=== PATIENT | female | born 1980 | race Caucasian/White ===

== ENCOUNTER 2022-05-10 08:04 | Outpatient (REF) | payer BC, SELFPAY ==
[2022-05-10 11:55] LABS: Alanine Aminotransferase 12 U/L (0-31); Albumin Level 3.8 g/dL (3.5-5.0); Alkaline Phosphatase 48 U/L (39-117); Anion Gap 16 (12-20); Aspartate Amino Transferase 13 U/L (5-31); Bilirubin Total 0.3 mg/dL (0.0-1.0); Blood Urea Nitrogen 18 mg/dL (9-16); Calcium 8.9 mg/dL (8.4-10.2); Carbon Dioxide 22 mmol/L (22-29); Chloride 107 mmol/L (96-108); Cholesterol 181 mg/dL; Estimated Glomerular Filt Rate 54; Glucose Fasting 111 mg/dL (60-99); HDL Cholesterol 55 mg/dL; LDL Cholesterol Calculated 99 mg/dl; Potassium 4.5 mmol/L (3.3-5.1); Sodium 140 mmol/L (135-145); Total Protein 7.1 g/dL (6.5-8.0); Triglycerides 137 mg/dL
[2022-05-10 11:57] LABS: Troponin-I High Sensitivity < 3.5 ng/L (<3.5-17.0)
[2022-05-10 12:02] LABS: TSH reflex Free T4 1.49 uIU/mL (0.32-4.0)
== END 2022-05-10 08:05 | disposition home or self-care (01) ==
LOC: HO.WFDLDS 08:04
PROVIDERS: Visit Provider Family Medicine
DX: Z00.00 Encounter for general adult medical examination without abnormal findings (principal); R07.89 Other chest pain; Z13.220 Encounter for screening for lipoid disorders; Z13.29 Encounter for screening for other suspected endocrine disorder
CPT/HCPCS: 36415; 80053; 80061; 84443; 84484

== ENCOUNTER 2022-07-01 08:04 | Outpatient (REF) | payer BC, SELFPAY ==
[2022-07-01 11:40] LABS: Appearance Urine Clear; Color Urine Yellow; Glucose Urine UA Negative (Negative); Leukocyte Esterase Urine Small (1+) (Negative); Nitrite Urine Negative (Negative); PH 5.5 (5.0-9.0); Specific Gravity - Urine 1.015 (1.005-1.025); UMIC TRIGGER UA YES; Urine Blood Negative (Negative); Urine Ketones Negative (Negative); Urine Protein Negative (Neg-Trace)
[2022-07-01 11:47] LABS: Bacteria Urine Trace (None Seen); Hyaline Casts Urine 0-2 /LPF (0-2); RBC Urine 0-2 /HPF (0-2)
== END 2022-07-01 08:05 | disposition home or self-care (01) ==
LOC: HO.WFDLDS 08:04
PROVIDERS: Visit Provider Family Medicine
DX: Z00.00 Encounter for general adult medical examination without abnormal findings (principal)
CPT/HCPCS: 81001

== ENCOUNTER 2023-04-28 11:56 | Outpatient (AMB) | payer BC, SELFPAY ==
--- NOTE | 2023-04-28 12:11 | MHC.OFFVIS ---
Intake Vital Signs 04/28/23 12:12 Height 5 ft 6 in Weight 260 lb BMI 42.0 BP 121/56 L Blood Pressure Location Lt brachial Position Sitting Pulse 78 Intake Visit Reasons: pt requested appointment Intake Note: Patient follow up pre colonoscopy screening. Patient denies any GI issues. Winder Hand Required: No Accompanied by: Self / Same As Patient Allergies No Known Allergies Allergy (Verified 04/28/23 12:10) HPI HPI Comments History of Present Illness Details A 43 y/o female seen in 09/03- here prepped for colonoscopy-miscommunication when she call to schedule her appointment- [facility], [facility] Family History Mother Colon polyps Maternal Uncle Colon polyps Maternal Grandfather Colon polyps Social History Housing: House Patient Tobacco Use Status: Never used Tobacco e-Cigarette/Vaping Use: Never Used Second Hand Smoke Exposure: No service: No Current occupational status: employed Current occupation: Mental Health Current occupational exposures/hazards: No Cognitive needs: No Hearing needs: No Vision needs: Yes Physical Exam Vital Signs: Last Vital Signs Pulse 78 04/28/23 12:12 BP 121/56 L 04/28/23 12:12 BMI result Body Mass Index 42.0 Assessment & Plan Assessment & Plan (1) Encounter for colonoscopy in patient with family history of colon polyps: Comment: Patient arrived to prep for colonoscopy there was some confusion when she called to schedule A point. Unable to have patient accommodated today, there was no availability however we did attempt. Sincere apologies, she seemed receptive Family history colon polyps mother at age 50-recommend first-degree relatives begin screening at age 40 reschedule Colonoscopy MiraLax Gatorade split prep Code(s): Z12.11 - Encounter for screening for malignant neoplasm of colon; Z83.71 - Family history of colonic polyps Medications: New bisacodyl (Dulcolax (bisacodyl)) Take 4 tablets by mouth at 12:00pm the day before your procedure. 20 mg (4 x 5 mg) PO ONCE 4 tabs 0RF colonoscopy prep 1 day Z12.11 - Encounter for screening for malignant neoplasm of colon polyethylene glycol 3350 (Miralax) Take as directed by mouth the day before your procedure. 238 grams PO ONCE 238 grams 0RF 1 day Patient Instructions: Patient to be rescheduled for colonoscopy MiraLax Gatorade split prep sent to pharmacy Again apologize to patient due to miscommunication with appointment timing Encouraged to call with questions or concerns Appreciate the opportunity assist in the care the patient Coding Level of Care Code Est Pt Level 2 (05503) Diagnoses Encounter for colonoscopy in patient with family history of colon polyps Z12.11; Z83.71 Comment Patient scheduled incorrectly-
[2023-04-28 12:12] VITALS: BP 121/56; PULSE 78; BMI 42.0
== END 2023-04-28 13:04 | disposition home or self-care (01) ==
PROVIDERS: PCP Family Medicine; Visit Provider Physician Assistant
DX: Z01.818 Encounter for other preprocedural examination (principal); Z12.11 Encounter for screening for malignant neoplasm of colon; Z83.71 Family history of colonic polyps
CPT/HCPCS: S0285

== ENCOUNTER → 2023-04-28 11:56 | Outpatient (BNVA) | payer BC, SELFPAY | PROVIDERS: PCP Family Medicine; Visit Provider Physician Assistant ==

== ENCOUNTER 2023-09-23 10:48 | Day surgery (SDC) | payer BC, SELFPAY ==
--- NOTE | 2023-09-22 10:11 | HO.ANESPROP2 ---
Documented by User: Karen Guajardo NP 09/22/23 10:12 HPI - Anesthesia Eval Consult details Narrative: 43yo F for Colonoscopy PMFSH Active Problems Active Problems: All Active Problems (Updated 04/28/23 @ 13:10 by Sandy Browne PA-C) Encounter for colonoscopy in patient with family history of colon polyps (Acute) Screening for colon cancer (Acute) Morbid obesity with BMI of 40.0-44.9, adult (Acute) Sinusitis (Acute) Elevated fasting glucose (Acute) Breast cancer screening by mammogram (Acute) Screening for cervical cancer (Acute) Adult general medical exam (Acute) Chest tightness (Acute) Right ankle pain (Acute) Pain in left bacon (Acute) Laboratory exam ordered as part of routine general medical examination (Acute) Past Medical History Medical History Hx of basal cell carcinoma Family History Family History Mother Colon polyps Maternal Uncle Colon polyps Maternal Grandfather Colon polyps Surgical History Surgical History Hx of wisdom tooth extraction Hx of basal cell carcinoma excision Social History Social History Housing: House Patient Tobacco Use Status: Never used Tobacco e-Cigarette/Vaping Use: Never Used Second Hand Smoke Exposure: No Use of substances other than those prescribed or required for medical reasons: No Are you DNR?: No Advance Directives: No Advance Directives Information Provided: Yes service: No Current occupational status: employed Current occupation: Mental Health Current occupational exposures/hazards: No Cognitive needs: No Hearing needs: No Vision needs: Yes Meds Allergies Allergy/AdvReac Type Severity Reaction Status Date / Time No Known Allergies Allergy Verified 09/23/23 11:09 Home Medications Medication Instructions Recorded Confirmed Last Taken Type norgestimate 0.25 mg-ethinyl 1 tab PO DAILY 04/29/22 09/23/23 Unknown History estradiol 35 mcg tablet (Sprintec (28)) Assessment and Plan Assessment Anesthesia Assessment: Chart Reviewed Documented by User: Evangelina Sparks MD 09/23/23 11:21 HPI - Anesthesia Eval Consult details Narrative: 43yo F for Colonoscopy, morbid obesity PMFSH Past Medical History Medical History Hx of basal cell carcinoma Family History Family History Mother Colon polyps Maternal Uncle Colon polyps Maternal Grandfather Colon polyps Family history of problems with anesthesia: No Surgical History Surgical History Hx of wisdom tooth extraction Hx of basal cell carcinoma excision History of Problems with Anesthesia: No Social History Social History Housing: House Patient Tobacco Use Status: Never used Tobacco e-Cigarette/Vaping Use: Never Used Second Hand Smoke Exposure: No Use of substances other than those prescribed or required for medical reasons: No Are you DNR?: No Advance Directives: No Advance Directives Information Provided: Yes service: No Current occupational status: employed Current occupation: Mental Health Current occupational exposures/hazards: No Cognitive needs: No Hearing needs: No Vision needs: Yes Meds Allergies Allergy/AdvReac Type Severity Reaction Status Date / Time No Known Allergies Allergy Verified 09/23/23 11:09 Home Medications Medication Instructions Recorded Confirmed Last Taken Type norgestimate 0.25 mg-ethinyl 1 tab PO DAILY 04/29/22 09/23/23 Unknown History estradiol 35 mcg tablet (Sprintec (28)) Exam Airway Mallampati Class: II TM Dist: >3cm Neck ROM: Full Heart: rrr Lungs: cta Assessment and Plan Assessment Anesthesia Assessment: Anesthesia Plan Discussed and Chart Reviewed Final Anesthetic Review Family History of Problems with Anesthesia: No History of Problems with Anesthesia: No NPO: Yes ASA Class: III (morbid obesity) Final Preanesthetic Review: No Changes in Pt Med Stat, Meds/Allgs Chart Reviewed, Consent Obtained/Reviewed and Anes Risks/Benef Reviewed Patient Risk: Intermediate Procedure Risk: Low Anesthetic Plan Anesthetic Plan: MAC: Disposition: Standard PACU
[2023-09-23 11:10] VITALS: BMI 42.5
[2023-09-23 11:24] VITALS: BP 133/77; PULSE 78; RESP 15; TEMP 36.8; O2SAT 96
[2023-09-23] MEDS: Lactated Ringers 1,000 ML 100 ML IVCONT (11:38)
[2023-09-23 11:40] LABS: UPreg QC Valid YES; Urine Pregnancy NEGATIVE (NEGATIVE)
--- NOTE | 2023-09-23 11:43 | P.HPSUR_ITS ---
Pre-Procedural Eval Section A Date of Service: 09/23/23 Section B Chief Complaint: Encounter for screening for malignant neoplasm Details of Present Illness: FH of colon polyps in mother and uncle Relevant Family History (Specify if Yes): Yes Relevant Social History: None Present Medications: see Short Stay Collaborative assessment Medical History: Significant History (Hx of basal cell carcinoma,obesity) History of Previous Operations: Relevant previous surgery/procedure and date(s) (skin excision of BCC, wisdom teeth ) Allergies: Allergies Allergy/AdvReac Type Severity Reaction Status Date / Time No Known Allergies Allergy Verified 09/23/23 11:09 Review of Systems Sugical H&P ROS: Negative: Constitution, Cardiovascular, Respiratory, Neurological, Psychiatric, Hem-Onc, Allergic/Immunologic, Gastrointestinal, Genitourinary, Musculoskeletal, Integumentary, Endocrine and Eyes/Ears/Nose/Throat Exam Surgical H&P Exam: Normal: HEENT, Normal: Heart, Normal: Lungs, Normal: Extrem ities, Normal: Abdomen, Normal: Skin and Normal: Neurological Plan Diagnosis/Plan: Unchanged I have reviewed the history and physical and performed a pertinent physical examination on my patient. No changes have occurred unless specified. Time Spent With Patient Time: Total time managing care of this patient today ____ minutes.
--- NOTE | 2023-09-23 12:58 | P.OP_ITS ---
Operative Note Operative Note Date of Service: 09/23/23 Narrative: Operative Information Procedure Description: Colonoscopy Indication: screening, FH of colon polyps Anesthesia: MAC COLONOSCOPY Instrument: Olympus variable stiffness ADULT scope 190L Colonoscopy Monitoring: Vital signs and clinical assessment, continuous EKG monitoring, Pulse oximetry, Carbon Dioxide monitoring and blood pressure monitoring were done throughout the procedure. Colon withdrawal time was 7 minutes. Procedure: The patient was placed in the left lateral decubitis position and pre-procedure medications were administered. After a digital rectal examination of the ano-rectum, the video colonoscope was inserted into the rectum and advanced through the colon to the cecum/TI. The colonoscope was slowly withdrawn in a retrograde panoramic fashion and the colon mucosa was carefully examined including a retroflexed view of the rectum. Findings and interventions are described below. Procedure Difficulty: easy Findings: Terminal Ileum-normal Cecum:normal Ascending Colon: normal Transverse Colon -normal Descending Colon:normal Sigmoid Colon: normal Rectum: Retroflexion with small internal hemorrhoids, grade I, 7-9 mm sessile polyp removed with cold snare Anorectum - normal Colon preparation: [place] Bowel Preparation Scale Right colon; 2 Transverse colon: 2 Left colon; 2 (0 = Unprepared colon segment with mucosa not seen due to solid stool that cannot be cleared. 1 = Portion of mucosa of the colon segment seen, but other areas of the colon segment not well seen due to staining, residual stool and/or opaque liquid. 2 = Minor amount of residual staining, small fragments of stool and/or opaque liquid, but mucosa of colon segment seen well. 3 = Entire mucosa of colon segment seen well with no residual staining, small fragments of stool or opaque liquid) Impression and Post Procedure Diagnosis: polyp internal hemorrhoids Plan: High fiber diet leaflet Avoid straining at stool, epsom salts and sitz bath, anusol supps or cream Repeat Colonoscopy in 5 years due to FH of polyps and removal of polyp today or earlier if clinically indicated Above findings were reviewed with the patient and relevant handouts were provided if indicated.
[2023-09-23 13:04] VITALS: BP 106/65; PULSE 76; RESP 16; TEMP 37.2; O2SAT 97
[2023-09-23 13:19] VITALS: BP 113/68; PULSE 68; RESP 18; TEMP 36.2; O2SAT 98
== END 2023-09-23 14:16 | disposition home or self-care (01) ==
PROVIDERS: Nurse Practitioner; PCP Family Medicine; Visit Provider Internal Medicine Gastroenterology
PROC: 0DJD8ZZ Inspection of Lower Intestinal Tract, Via Natural or Artificial Opening Endoscopic (ICD-10-PCS; CPT 45378; principal; 2023-09-23 12:50)
DX: Z12.11 Encounter for screening for malignant neoplasm of colon (principal); K62.1 Rectal polyp; K64.0 First degree hemorrhoids; Z83.719 Family history of colon polyps, unspecified; E66.01 Morbid (severe) obesity due to excess calories; Z68.41 Body mass index [BMI] 40.0-44.9, adult
CPT/HCPCS: 45385; 81025; 88305; J2704

== ENCOUNTER → 2023-09-23 10:48 | Outpatient (BNV) | payer BC, SELFPAY | PROVIDERS: PCP Family Medicine; Visit Provider Internal Medicine Gastroenterology | DX: Z12.11 Encounter for screening for malignant neoplasm of colon (principal); Z80.0 Family history of malignant neoplasm of digestive organs; K64.0 First degree hemorrhoids; D12.8 Benign neoplasm of rectum | CPT/HCPCS: 45385 ==

== ENCOUNTER 2023-10-21 09:11 | Outpatient (AMB) | payer BC, SELFPAY ==
--- NOTE | 2023-10-21 09:12 | MHC.OFFVIS ---
Intake Intake Visit Reasons: S/P [place]; Nino Intake Note: Patient follow up for Colonoscopy results. Patient denies any GI issues. Bar Finish Operator Required: No Accompanied by: Self / Same As Patient Allergies No Known Allergies Allergy (Verified 10/21/23 09:12) HPI HPI Comments History of Present Illness Details A 43-year-old female seen initially greater than a year ago with family history of colon polyps was to follow up in office after recent colonoscopy She was initially seen in [place] office and had been scheduled for follow-up She had then requested phone call to discuss results [phone] Cell Phone Address She has no GI complaints Tolerated procedure well Reviewed procedure report, pathology and recommendation No nausea, vomiting, diarrhea, abdominal pain fever chills PFSH Medical History (Updated 10/21/23 @ 09:44 by Sandy Browne PA-C) Hx of basal cell carcinoma Surgical History Hx of colonoscopy Hx of wisdom tooth extraction Hx of basal cell carcinoma excision Family History Mother Colon polyps Maternal Uncle Colon polyps Maternal Grandfather Colon polyps Social History Housing: House Patient Tobacco Use Status: Never used Tobacco e-Cigarette/Vaping Use: Never Used Second Hand Smoke Exposure: No service: No Current occupational status: employed Current occupation: Mental Health Current occupational exposures/hazards: No Cognitive needs: No Hearing needs: No Vision needs: Yes Review of Systems Const All systems reviewed & are unremarkable except as noted in HPI and below Results Reviewed Results Reviewed: mpression and Post Procedure Diagnosis: polyp internal hemorrhoids Plan: High fiber diet leaflet Avoid straining at stool, epsom salts and sitz bath, anusol supps or cream Repeat Colonoscopy in 5 years due to FH of polyps and removal of polyp today or earlier if clinically indicated Name: Stacey Holguin Age/Sex: 43/F Attending: Marissa Nino MD : 1980 Submitted by: Marissa Nino MD Copies to: Ari Blackburn MD MR #: [id number] Status: [facility] Collected: 09/23/23 Location: [facility] Received: 09/23/23 Diagnosis Rectum, polypectomy: Hyp Assessment & Plan Assessment & Plan (1) Family history of hyperplastic colon polyps: Code(s): Z83.711 - Family history of hyperplastic colon polyps Plan: Repeat asymptomatic colonoscopy 5 years (2) Hemorrhoids: Code(s): K64.9 - Unspecified hemorrhoids Plan: Maintain high-fiber diet avoid straining (3) Hyperplastic rectal polyp: Comment: Reviewed procedure report, pathology recommendation Code(s): K62.1 - Rectal polyp Plan: Repeat asymptomatic colonoscopy 5 years due to family history colon polyp Avoid straining with hemorrhoid Maintain high-fiber diet Patient Instructions: Repeat asymptomatic colonoscopy 5 years due to family history colon polyp Telehealth Telehealth Location of provider rendering services: practice address Location of patient: address on file (In her car) Telehealth method: voice only Patient verbally consented to billing insurance company: Yes Patient informed of any privacy concerns related to visit: Yes Minutes spent on Phone/Video with Pt.: 10 Coding Level of Care Code Tele New Pt Level 3 (28160) Diagnoses Family history of hyperplastic colon polyps Z83.711 Hemorrhoids K64.9 Hyperplastic rectal polyp K62.1 Time Spent (min) 10
== END 2023-10-21 10:12 | disposition home or self-care (01) ==
LOC: HO.HGI 09:11
PROVIDERS: PCP Family Medicine; Visit Provider Physician Assistant
DX: K62.1 Rectal polyp (principal); K64.9 Unspecified hemorrhoids; Z83.711 Family history of hyperplastic colon polyps
CPT/HCPCS: 99441

== ENCOUNTER → 2023-10-21 09:11 | Outpatient (BNVA) | payer BC, SELFPAY | PROVIDERS: PCP Family Medicine; Visit Provider Physician Assistant ==

== ENCOUNTER 2024-01-05 09:38 | Outpatient (REF) | payer BC, SELFPAY ==
--- NOTE | ~2024-01-05 | XR_ITS ---
EXAMINATION: XR LUMBAR SPINE, BILATERAL HIPS, PELVIS CLINICAL INFORMATION: Low back pain unspecified, abnormalities of gait and mobility. COMPARISON: None available. TECHNIQUE: AP view of the pelvis. AP and frog-lateral views of each hip. 3 views of the lumbar spine. FINDINGS: Lumbar Spine: Facet arthritis in the lower lumbar spine. Minimal leftward curvature of the lumbar spine. Mild multilevel lumbar spondylosis with mild loss of disc space height at L4-L5 and L5-S1. Pelvis: Asymmetric degenerative changes in the bilateral sacroiliac joints, left greater than right. Right Hip: Mild joint space narrowing with degenerative changes in the hip. Alignment preserved. Limited visualization due to body habitus. Small sclerotic focus overlying the right intertrochanteric region, possibly a bone island. Left Hip: Mild joint space narrowing with degenerative changes in the hip. Alignment is preserved. Limited visualization due to body habitus. XR/XR lumbar spine 2-3V IMPRESSION: 1. Mild multilevel lumbar spondylosis with mild loss of disc space height at L4-L5 and L5-S1. 2. Asymmetric degenerative changes in the bilateral sacroiliac joints, left greater than right. 3. Mild degenerative changes bilateral hips. 4. CT scan or MRI should be obtained if there is clinical concern for fracture or other underlying pathology.
--- NOTE | ~2024-01-05 | XR_ITS ---
EXAMINATION: XR LUMBAR SPINE, BILATERAL HIPS, PELVIS CLINICAL INFORMATION: Low back pain unspecified, abnormalities of gait and mobility. COMPARISON: None available. TECHNIQUE: AP view of the pelvis. AP and frog-lateral views of each hip. 3 views of the lumbar spine. FINDINGS: Lumbar Spine: Facet arthritis in the lower lumbar spine. Minimal leftward curvature of the lumbar spine. Mild multilevel lumbar spondylosis with mild loss of disc space height at L4-L5 and L5-S1. Pelvis: Asymmetric degenerative changes in the bilateral sacroiliac joints, left greater than right. Right Hip: Mild joint space narrowing with degenerative changes in the hip. Alignment preserved. Limited visualization due to body habitus. Small sclerotic focus overlying the right intertrochanteric region, possibly a bone island. Left Hip: Mild joint space narrowing with degenerative changes in the hip. Alignment is preserved. Limited visualization due to body habitus. XR/XR pelvis 1-2V IMPRESSION: 1. Mild multilevel lumbar spondylosis with mild loss of disc space height at L4-L5 and L5-S1. 2. Asymmetric degenerative changes in the bilateral sacroiliac joints, left greater than right. 3. Mild degenerative changes bilateral hips. 4. CT scan or MRI should be obtained if there is clinical concern for fracture or other underlying pathology.
--- NOTE | ~2024-01-05 | XR_ITS ---
EXAMINATION: XR LUMBAR SPINE, BILATERAL HIPS, PELVIS CLINICAL INFORMATION: Low back pain unspecified, abnormalities of gait and mobility. COMPARISON: None available. TECHNIQUE: AP view of the pelvis. AP and frog-lateral views of each hip. 3 views of the lumbar spine. FINDINGS: Lumbar Spine: Facet arthritis in the lower lumbar spine. Minimal leftward curvature of the lumbar spine. Mild multilevel lumbar spondylosis with mild loss of disc space height at L4-L5 and L5-S1. Pelvis: Asymmetric degenerative changes in the bilateral sacroiliac joints, left greater than right. Right Hip: Mild joint space narrowing with degenerative changes in the hip. Alignment preserved. Limited visualization due to body habitus. Small sclerotic focus overlying the right intertrochanteric region, possibly a bone island. Left Hip: Mild joint space narrowing with degenerative changes in the hip. Alignment is preserved. Limited visualization due to body habitus. XR/XR hips ELIZABETH min 3V IMPRESSION: 1. Mild multilevel lumbar spondylosis with mild loss of disc space height at L4-L5 and L5-S1. 2. Asymmetric degenerative changes in the bilateral sacroiliac joints, left greater than right. 3. Mild degenerative changes bilateral hips. 4. CT scan or MRI should be obtained if there is clinical concern for fracture or other underlying pathology.
== END 2024-01-05 09:39 | disposition home or self-care (01) ==
LOC: HO.HMGCX 09:38
PROVIDERS: PCP Family Medicine; Visit Provider Family Medicine
DX: M54.50 Low back pain, unspecified (principal); M54.30 Sciatica, unspecified side; R26.89 Other abnormalities of gait and mobility
CPT/HCPCS: 72100; 72170; 73522

== ENCOUNTER 2024-01-14 15:52 | Outpatient (AMB) | payer BC, SELFPAY ==
[2024-01-14 15:58] VITALS: BP 114/62; PULSE 78; O2SAT 97; BMI 48.8
--- NOTE | 2024-01-14 15:58 | A.OFFPC_ITS ---
Vital Signs 01/14/24 15:58 Height 5 ft 5 in Weight 293 lb BMI 48.8 BP 114/62 Blood Pressure Location Lt brachial Position Sitting Pulse 78 Pulse Source Pulse Oximeter Pulse Oximetry (%) 97 Oxygen Delivery Method Room Air Intake Visit Reasons: Annual PE Intake Note: Patient is here for her physical today. Allergies salmon Allergy (Unknown, Uncoded 01/14/24 16:02) Unknown Tobacco use date assessed: 01/14/24 Dental Screening Dental Screen Date: 01/14/24 Did you have a dental visit in the last 12 months?: Yes Did you have a dental problem in the last 6 months where you did not have access to dental care?: No Was dental information given to patient?: Patient has dentist HPI Annual PE HPI Details 43 y/o female presents for a CPE with f/ u labs and health maintenance. No recent labs to review. Hx of elevated fasting glucose. A1c today 01/14/24 is 7.2%. Pt reports ongoing back pain that radiates down into her hips. HPI Comments History of Present Illness Details Documentation assistance for Ari Blackburn MD, was provided by Jacob Mondragon, [employer] on 01/13/2024 4:14 PM EST. I, Dr. Blackburn, have read, observed, and verified documentation. PFSH Medical History Hx of basal cell carcinoma Surgical History Hx of colonoscopy Hx of wisdom tooth extraction Hx of basal cell carcinoma excision Family History (Updated 01/14/24 @ 16:05 by Nataly Corrales CMA) Mother Colon polyps Breast cancer Maternal Uncle Colon polyps Maternal Grandfather Colon polyps Social History Housing: House Patient Tobacco Use Status: Never used Tobacco e-Cigarette/Vaping Use: Never Used Second Hand Smoke Exposure: No service: No Current occupational status: employed Current occupation: Mental Health Current occupational exposures/hazards: No Cognitive needs: No Hearing needs: No Vision needs: Yes Questionnaire PHQ-9 Over the last 2 weeks, how often have you been bothered by any of the following problems? 1. Little interest or pleasure in doing things: not at all 2. Feeling down, depressed, or hopeless: not at all 3. Trouble falling or staying asleep, or sleeping too much: not at all 4. Feeling tired or having little energy: not at all 5. Poor appetite or overeating: not at all 6. Feeling bad about yourself - or that you are a failure or have let yourself or your family down: not at all 7. Trouble concentrating on things, such as reading the newspaper or watching television: not at all 8. Moving or speaking so slowly that other people could have noticed. Or the opposite - being so fidgety or restless that you have been moving around a lot more than usual: not at all 9. Thoughts that you would be better off or of hurting yourself in some way: not at all Total score: 0 Depression Screening Interpretation: Negative Depression Screening Done: Yes 16807 - PHQ-9 Billing: Yes Source: Developed by Drs. Jerome Mendez, Marie Sutton, Isaias Aguilar and colleagues, with an educational dayan from [employer]. Thrive Questionnaire Date Thrive assessed: 01/14/24 I am a: Patient What is your living situation today?: I have a steady place to live Within the past 12 months, did the food you bought not last and you didn't have the money to get more?: Never true Within the past 12 months, did you worry whether your food would run out before you got money to buy more?: Never true Do you have trouble paying for medicines?: No Do you have trouble getting transportation to medical appointments?: No Do you have trouble paying your heating and electricity bill?: No Do you have trouble taking care of your child, family member or friend?: No Do you have trouble with day-to-day activities such as bathing, preparing meals, shopping, managing finances, etc.?: No Are you currently unemployed and looking for a job?: No Are you interested in more education?: No THRIVE Score: 0 AUDIT C Alcohol Use Questionnaire (AUDIT-C) 1. How often do you have a drink containing alcohol?: 2-4 times a month 2. How many drinks containing alcohol do you have on a typical day when you are drinking?: 1 or 2 3. How often do you have six or more drinks on one occasion?: Never Total Score: 2 LEONOR-7 AMB Questionnaire LEONOR-7 Date LEONOR - 7 assessed: 01/14/24 Feeling nervous, anxious, or on edge: 0 = Not at all Not being able to stop or control worryin = Not at all Worrying too much about different things: 0 = Not at all Trouble relaxin = Not at all Being so restless that it is hard to sit still: 0 = Not at all Becoming easily annoyed or irritable: 0 = Not at all Feeling afraid as if something awful might happen: 0 = Not at all Total LEONOR-7 score (0-4 normal; 5-9 mild; 10-14 moderate; 15-21 severe): 0 Source: Developed by Drs. Jerome Mendez, Marie Sutton, Isaias Aguilar and colleagues, with an educational dayan from [employer]. LEONOR-7 Assessment Billing LEONOR-7 Assessment Tool: LEONOR-7 Assessment 17370 Review of Systems Const Denies chills, Denies fatigue, Denies fever(s), Denies headache(s) and Denies weakness Eyes Denies change in vision ENT Denies dizziness, Denies headache(s), Denies hearing loss, Denies nasal congestion, Denies sinus pain, Denies sinus pressure and Denies sore throat Card Denies chest pain, Denies lightheadedness, Denies dyspnea and Denies other (palpitations) Resp Denies cough, Denies dyspnea and Denies wheezing GI Denies abdominal pain, Denies melena, Denies hematochezia, Denies change in bowel habits, Denies dyspepsia and Denies nausea Denies hematuria and Denies dysuria Musc Denies abnormal gait, Denies myalgias, Denies arthralgias, Denies numbness and Denies tingling Skin/Breast Denies rash, Denies unusual bruising and Denies wounds Neuro Denies abnormal gait, Denies dizziness, Denies headache(s), Denies memory loss, Denies numbness, Denies Sensory deficit (Neuro), Denies tingling and Denies weakness Psych Denies anxiety, Denies depression and Denies memory loss Endo Denies cold intolerance, Denies fatigue, Denies heat intolerance, Denies polydipsia and Denies polyuria Jose Alberto/Lymph Denies easy bleeding and Denies easy bruising Aller/Immun Denies wheezing Physical exam (Primary Care) Vital Signs: Last Vital Signs Pulse 78 01/14/24 15:58 BP 114/62 01/14/24 15:58 Pulse Ox 97 01/14/24 15:58 Oxygen Delivery Method Room Air 01/14/24 15:58 BMI result Body Mass Index 48.8 Tobacco/Smoking Status: Tobacco use Status Tobacco use date assessed 01/14/24 01/14/24 16:11 Patient Tobacco Use Status Never used Tobacco 01/14/24 15:58 e-Cigarette/Vaping Use Never Used 01/14/24 15:58 PHQ-9: PHQ-9 Score PHQ-9: Total score 0 01/14/24 16:24 Depression Screening Interpretation: Negative Thrive Assessment: Date of Thrive Assessment Date Thrive assessed 01/14/24 01/14/24 16:11 Const General: no acute distress, well developed, alert and awake Nutritional Appearance: obese morbidly obese Orientation/consciousness: patient oriented x3 HENMT Head: Yes normocephalic and Yes atraumatic Ears: hearing grossly normal bilaterally and TM's normal bilaterally General nose exam: Normal external nose present and Normal nares present Mouth: Normal oral and palatal mucosa present and moist mucous membranes Teeth and gingiva: dentition normal Throat: Yes posterior oropharynx normal Eyes General: appearance normal, both eyes and all related structures Pupils: Equal, round and reactive pupils present and Pupil accommodation reflex normal EOM: EOMs intact bilaterally Neck Neck: Yes normal visual inspection, Yes no lymphadenopathy and Yes trachea midline Thyroid: Thyroid normal Carotids: no bruits Lymphatic: no lymphadenopathy noted Chest Chest palpation & inspection: normal inspection of the chest Resp Effort & Inspection: normal respiratory effort Auscultation: clear to auscultation bilaterally Cardio Rate: regular rate Rhythm: regular rhythm Heart sounds: S1 normal heart sound present, S2 normal heart sound present, no gallops, no murmurs and no rubs Bruits: no abdominal aortic bruits and no carotid bruits GI Palpation (GI): No Abdominal aortic bruit present, Soft to palpation, nontender, No hepatosplenomegaly present and No Rebound tenderness present Auscultation: normal bowel sounds General: Yes no CVA tenderness Back/Spine/Pelvis Back: no CVA tenderness Cervical Spine: cervical ROM normal and No Cervical spine tenderness Thoracic/Lumbar Spine: thoraco-lumbar ROM normal, No pain with thoraco-lumbar ROM, No thoracic spinal tenderness and No lumbar spinal tenderness Skin Lesions: no lesions Rashes: no rashes Trauma: no lacerations or abrasions Wounds: no wounds Nails: normal Neuro General: patient oriented x3 Cranial nerves: Yes Equal, round and reactive pupils present Cognition (Neuro): normal cognition Gait exam (Neuro): Normal gait present Motor exam (neuro): 5/5 motor strength present throughout Sensory Exam: No Sensory deficit (Neuro) Deep tendon reflexes (DTR's): Right patellar reflex intensity grade: 2+ and Left patellar reflex intensity grade: 2+ Extrem General: Yes normal to inspection and No edema Psych Appearance: grossly normal Affect: normal affect Attitude: cooperative Thought process: Normal thought process present Assessment and Plan Assessment & Plan (1) Adult general medical exam: Code(s): Z00.00 - Encounter for general adult medical examination without abnormal findings Plan: 43-year-old?female?presents?for?complete?physical?exam Encouraged?healthy?diet?with?active?lifestyle?and?plenty?of?exercise (2) Diabetes: Code(s): E11.9 - Type 2 diabetes mellitus without complications Plan: A1c?is?7.2%. New?diagnosis?of?diabetes.??Goal?is?less?than?7.0% Will?start?metformin Encouraged?diet?low?in?sugars?and?starches.??Encouraged?weight?loss?and?exercise Will?refer?to?ophthalmology Referred?to?the?nurse?navigator?for?diabetic?teaching (3) Screening for cervical cancer: Code(s): Z12.4 - Encounter for screening for malignant neoplasm of cervix Plan: Pap?smears?are?done?at?[facility]?and?last?Pap?smear?was?within?a?year.??Up-to-da te (4) Breast cancer screening by mammogram: Code(s): Z12.31 - Encounter for screening mammogram for malignant neoplasm of breast Plan: Mammogram?in?August?showed?no?evidence?of?malignanc ies?and?recommended?annual?screening (5) Hip pain: Code(s): M25.559 - Pain in unspecified hip Plan: Low?back?pain?and?hip?pain She?is?seeing?a?chiropractor X-rays?show?some?arthritis?and?also?some?degenerative?disc?disease Encouraged?weight?loss Physical?therapy She?can?continue?to?follow-up?with?her?chiropractor?as?well. (6) Low back pain: Code(s): M54.50 - Low back pain, unspecified Plan: As?above Orders: Orders Comprehensive [place]. Panel Fast Today Z00.00 - Encounter for general adult medical examination without abnormal findings Microalbumin, Random (w Creat) Today I10 - Essential (primary) hypertension TSH reflex Free T4 Today Z00.00 - Encounter for general adult medical examination without abnormal findings PT Evaluation and Treatment Today M25.559 - Pain in unspecified hip, M54.50 - Low back pain, unspecified Lipid Panel Today Z00.00 - Encounter for general adult medical examination without abnormal findings UA and rflx microscopic Today Z00.00 - Encounter for general adult medical examination without abnormal findings Referrals Nurse Navigator Referral E11.9 - Type 2 diabetes mellitus without complications Ophthalmology Referral E11.9 - Type 2 diabetes mellitus without complications Medications: New metformin 500 mg PO DAILY 90 tabs 2RF 90 days Coding Level of Care Code Est Pt Level 3 (52050) Est Pt Prev Care 40-64y(92761) Diagnoses Adult general medical exam Z00.00 Diabetes E11.9 Screening for cervical cancer Z12.4 Breast cancer screening by mammogram Z12.31 Hip pain M25.559 Low back pain M54.50 Additional Codes LEONOR-7 Assessment Billing - LEONOR-7 Assessment Tool: LEONOR-7 Assessment 73768 ([id number])
== END 2024-01-20 08:27 | disposition home or self-care (01) ==
PROVIDERS: PCP Family Medicine; Visit Provider Family Medicine
DX: Z00.00 Encounter for general adult medical examination without abnormal findings (principal); E11.9 Type 2 diabetes mellitus without complications; M25.551 Pain in right hip; M54.50 Low back pain, unspecified; M25.552 Pain in left hip; Z12.31 Encounter for screening mammogram for malignant neoplasm of breast
CPT/HCPCS: 99213; 99396

== ENCOUNTER 2024-01-16 07:48 | Outpatient (REF) | payer BC, SELFPAY ==
[2024-01-16 11:43] LABS: Appearance Urine Turbid; Color Urine Yellow; Glucose Urine UA Negative (Negative); Leukocyte Esterase Urine Negative (Negative); Nitrite Urine Negative (Negative); PH 5.5 (5.0-9.0); UMIC TRIGGER UA YES; Urine Blood Large (3+) (Negative); Urine Ketones Negative (Negative); Urine Protein Negative (Neg-Trace)
[2024-01-16 11:47] LABS: Bacteria Urine None Seen (None Seen); Hyaline Casts Urine 0-2 /LPF (0-2); RBC Urine >20 /HPF (0-2); Squamous Epithelial Cell Urine 0-2 /HPF (0-2); WBC Urine 0-5 /HPF (0-5)
[2024-01-16 12:00] LABS: Alanine Aminotransferase 18 U/L (0-31); Albumin Level 3.8 g/dL (3.5-5.0); Alkaline Phosphatase 52 U/L (39-117); Anion Gap 14 (12-20); Aspartate Amino Transferase 15 U/L (5-31); Bilirubin Total 0.2 mg/dL (0.0-1.0); Blood Urea Nitrogen 15 mg/dL (9-16); Calcium 9.2 mg/dL (8.4-10.2); Carbon Dioxide 23 mmol/L (22-29); Chloride 107 mmol/L (96-108); Cholesterol 183 mg/dL (<200); Estimated Glomerular Filt Rate > 60; Glucose Fasting 131 mg/dL (60-99); HDL Cholesterol 50 mg/dL (>40); LDL Cholesterol Calculated 105 mg/dL (<100); Potassium 4.6 mmol/L (3.3-5.1); Sodium 139 mmol/L (135-145); Total Protein 7.7 g/dL (6.5-8.0); Triglycerides 144 mg/dL (<150)
[2024-01-16 12:05] LABS: TSH reflex Free T4 2.55 uIU/mL (0.32-4.0)
[2024-01-16 13:04] LABS: Creatinine Urine 201.79 mg/dL; Microalbum/Creatinine Ratio Ur 7.9 ug/mg cr (<30)
== END 2024-01-16 07:49 | disposition home or self-care (01) ==
LOC: HO.WFDLDS 07:48
PROVIDERS: Visit Provider Family Medicine
DX: Z00.00 Encounter for general adult medical examination without abnormal findings (principal); I10 Essential (primary) hypertension
CPT/HCPCS: 36415; 80053; 80061; 81001; 82043; 82570; 84443

== ENCOUNTER 2024-03-02 09:40 | Outpatient (AMB) | payer BC, SELFPAY ==
--- NOTE | 2024-03-02 09:46 | A.OFFPC_ITS ---
Vital Signs 03/02/24 09:47 Height 5 ft 5 in Weight 250 lb 8 oz BMI 41.7 BP 118/76 Blood Pressure Location Lt brachial Position Sitting Pulse 99 Pulse Source Pulse Oximeter Pulse Oximetry (%) 98 Oxygen Delivery Method Room Air Intake Visit Reasons: f/u diabetes Intake Note: Patient is here to follow up on her diabetes. Allergies salmon Allergy (Unknown, Uncoded 03/02/24 09:49) Unknown Medication List - Last Reconciled 03/02/24 by Ari Blackburn MD metformin 500 mg PO DAILY 90 days norgestimate-ethinyl estradiol 0.25-35 mg-mcg (Sprintec (28)) 1 tab PO DAILY Tobacco use date assessed: 03/02/24 Dental Screening Dental Screen Date: 01/14/24 HPI f/u diabetes HPI Details 44 y/o female presents to f/u diabetes. New diagnosis of diabetes and last A1c 01/14/24 7.2%. She is now on metformin 500mg daily. A1c today 6.4%. Pt reports intermittent motion sickness with diving/boating. PFSH Medical History Hx of basal cell carcinoma Surgical History Hx of colonoscopy Hx of wisdom tooth extraction Hx of basal cell carcinoma excision Family History (Updated 01/14/24 @ 16:05 by Nataly Corrales CMA) Mother Colon polyps Breast cancer Maternal Uncle Colon polyps Maternal Grandfather Colon polyps Social History Housing: House Patient Tobacco Use Status: Never used Tobacco e-Cigarette/Vaping Use: Never Used Second Hand Smoke Exposure: No service: No Current occupational status: employed Current occupation: Mental Health Current occupational exposures/hazards: No Cognitive needs: No Hearing needs: No Vision needs: Yes Questionnaire Thrive Questionnaire Date Thrive assessed: 01/14/24 LEONOR-7 AMB Questionnaire LEONOR-7 Date LEONOR - 7 assessed: 01/14/24 Source: Developed by Drs. Jerome Mendez, Marie Sutton, Isaias Aguilar and colleagues, with an educational dayan from [employer]. Review of Systems Const Denies chills, Denies fatigue, Denies fever(s), Denies headache(s) and Denies weakness ENT Denies dizziness and Denies headache(s) Card Denies dyspnea Resp Denies cough, Denies dyspnea, Denies wheezing and Denies other (shortness of breath) Musc Denies numbness and Denies tingling Neuro Denies dizziness, Denies headache(s), Denies numbness, Denies tingling and Denies weakness Psych Denies anxiety and Denies depression Endo Denies fatigue Aller/Immun Denies wheezing Physical exam (Primary Care) Vital Signs: Last Vital Signs Pulse 99 03/02/24 09:47 BP 118/76 03/02/24 09:47 Pulse Ox 98 03/02/24 09:47 Oxygen Delivery Method Room Air 03/02/24 09:47 BMI result Body Mass Index 41.7 Tobacco/Smoking Status: Tobacco use Status Tobacco use date assessed 03/02/24 03/02/24 09:54 Patient Tobacco Use Status Never used Tobacco 03/02/24 09:47 e-Cigarette/Vaping Use Never Used 03/02/24 09:47 Thrive Assessment: Date of Thrive Assessment Date Thrive assessed 01/14/24 03/02/24 09:47 Const General: well developed; No acute distress Nutritional Appearance: well nourished and obese morbidly obese Orientation/consciousness: patient oriented x3 HENMT Other: TMs?normal?bilaterally Head: Yes normocephalic and Yes atraumatic Eyes General: appearance normal, both eyes and all related structures Pupils: Equal, round and reactive pupils present EOM: EOMs intact bilaterally Resp Effort & Inspection: normal respiratory effort Neuro General: patient oriented x3 and gait normal Cranial nerves: Yes Equal, round and reactive pupils present Psych Affect: normal affect Results AMB Hemoglobin A1c AMB Hemoglobin A1c 6.4 % Last Edit by Nataly Corrales CMA on 03/02/24 10:05 Assessment and Plan Assessment & Plan (1) Diabetes: Code(s): E11.9 - Type 2 diabetes mellitus without complications Plan: New?diagnosis?of?diabetes?at?last?visit?with?A1c?of?7.2%?recorded?at?visit?in?of fice. She?had?diabetic?teaching?since?then?and?is?working?on?increased?exercise?and?di abetic?diet?and?weight?loss. She?has?lost?about?5?lb?since?September A1c?today?6.4% Encouraged?her?to?continue?metformin?and?lifestyle?changes. A1c?is?likely?still?in?flux?and?I?expect?it?will?continue?to?improve. We?discu ssed?that?if?she?can?bring?her?A1c?down?to?about?5.4%?we?can?try?removing?metfor min?and?work?at?diet-controlled?diabetes.??Patient?agrees. (2) Motion sickness: Code(s): T75.3XXA - Motion sickness, initial encounter Plan: Ongoing,?intermittent?motion?sickness?and?vertigo?with?activities?ortiz ch?as?diving?and?boating. She?notes?that?she?is?done?these?things?all?her?life?without?any?problems She?has?tried?Dramamine?and?scopolamine. She?would?like?a?referral?to?neurology?which?I?have?made. Orders: Orders AMB Hemoglobin A1c Today Z13.9 - Encounter for screening, unspecified Referrals Neurology Referral R42 - Dizziness and giddiness, T75.3XXA - Motion sickness, initial encounter Coding Level of Care Code Est Pt Level 3 (85627) Diagnoses Diabetes E11.9 Motion sickness T75.3XXA
[2024-03-02 09:47] VITALS: BP 118/76; PULSE 99; O2SAT 98; BMI 41.7
== END 2024-03-02 10:13 | disposition home or self-care (01) ==
PROVIDERS: PCP Family Medicine; Visit Provider Family Medicine
DX: E11.9 Type 2 diabetes mellitus without complications (principal); T75.3XXA Motion sickness, initial encounter
CPT/HCPCS: 83036; 99213

== ENCOUNTER 2024-03-22 09:00 | Outpatient (RCR) | payer BC, SELFPAY ==
--- NOTE | 2024-02-09 14:25 | MHC.PT.EP ---
[facility] [place] [facility] [place] [facility] [place] [facility] [address] Anupam Silver [address] [phone] F: [phone] F: [phone] F: [phone] F: [phone] Physical Therapy Plan of Care Date of Evaluation: 02/09/24 Date of Surgery: Diagnosis: M54.50 Low back pain, unspecified. M25.559 Pain in unspecified hip, Low back pain, Hip pain by Ari Blackburn 01/15/24 Assessment: Pt is a RHD 43 y/o female with PMH including basal cell CA and new diagnosis of DMII, referred to PT from PCP Dr. Blackburn following history of low back pain which has been present for over a year. Pt expresses she has been seeing a chiropractor since October (reports solo HEP issued has been hip ER stretch). She states she has joined the [email or web address] and has been swimming 1-2x/week. She reports bilateral lower back and hip pain. Pt expresses decreased walking tolerance and expresses tightness throughout her lower back. Pt exhibits decreased flexibility of hip flexors/ hip rotators, and trunk musculature. Post eval today was initiated in hip flexor stretching, trunk flexor stretching, piriformis, and SKTC post eval. Pt was educated re: flex-barkeep for plantar fascia stretching. She reports R>L ankle soreness at times in gastroc soleus complex. Pt encouraged to attend PT twice weekly, however pt electing to attend therapy once a week due to schedule. Pt was issued a written HEP program for self care. Pt exhibits good rehab potential. Pt would benefit from a formal core and hip stabilization program in addition to education for trunk and hip flexibility exercises. Frequency and Duration: The patient will be seen 1x/week x4- 6 weeks Short Term Goals: 1. Initiate HEP. 2. Improve flexibility of hip ER B. 3. Improve flexibility of hip flexors B. 4. Improve flexibility of erector spinae. 5. Pt will become aware of core activation during ADLs/IADLS. Custodial Goals: 1. I HEP, with self care management. 2. Walk 2 miles with sx <2/10 in lumbar/hip. 3. Strengthen hip abd 5/5 B. 4. Strengthen hip ext 5/5 B. 5. Demonstrate functional squats 3:3 trials with good mechanics/activation. Treatment Plan: Modalities to reduce pain, spasms and effusion. Manual therapy to restore motion and function. Therapeutic exercise to improve strength and flexibility. Neuromuscular re-education for posture and balance. Therapeutic activities to return to functional activities of daily living. Electronically signed by: Amirah Johnson PT, DPT Please sign and return to therapist. Thank you for your referral.
== END 2024-09-16 10:16 | disposition home or self-care (01) ==
LOC: HO.PTWFD 09:00
PROVIDERS: PCP Family Medicine; Visit Provider Family Medicine
DX: M54.50 Low back pain, unspecified (principal); M25.551 Pain in right hip; M25.552 Pain in left hip
CPT/HCPCS: 97110; 97161; 97535

== ENCOUNTER 2024-08-03 11:37 | Outpatient (AMB) | payer BC, SELFPAY ==
--- NOTE | 2024-08-03 11:53 | MHC.PC.OV ---
Vital Signs 08/03/24 11:55 Height 5 ft 5 in Weight 248 lb BMI 41.3 BP 135/73 Blood Pressure Location Lt brachial Position Sitting Respiration 14 Pulse 79 Pulse Source Pulse Oximeter Temp 97.2 F Temp Source Temporal Artery Scan Pulse Oximetry (%) 97 Oxygen Delivery Method Room Air Intake Visit Reasons: F/U DIABETES Intake Note: f/u DM Allergies salmon Allergy (Unknown, Uncoded 08/03/24 11:54) Unknown Medication List - Last Reconciled 08/03/24 by Ari Blackburn MD metformin 500 mg PO DAILY 90 days norgestimate-ethinyl estradiol 0.25-35 mg-mcg (Sprintec (28)) 1 tab PO DAILY Tobacco use date assessed: 03/02/24 Dental Screening Dental Screen Date: 01/14/24 HPI F/U DIABETES HPI Details 44 y/o female presents to f/u diabetes. Last A1c 03/02/24 6.4%. She is on metformin 500mg daily. A1c today 08/03/24 is 6.3%. HPI Comments History of Present Illness Details Documentation assistance for Ari Blackburn MD, was provided by Jacob Mondragon, Radio Tower Technician on 08/03/2024 at 12:13 PM EST. I, Dr. Blackburn, have read, observed, and verified documentation. PFSH Medical History Hx of basal cell carcinoma Surgical History Hx of colonoscopy Hx of wisdom tooth extraction Hx of basal cell carcinoma excision Family History (Updated 01/14/24 @ 16:05 by Nataly Corrales CMA) Mother Colon polyps Breast cancer Maternal Uncle Colon polyps Maternal Grandfather Colon polyps Social History Housing: House Patient Tobacco Use Status: Never used Tobacco e-Cigarette/Vaping Use: Never Used Second Hand Smoke Exposure: No service: No Current occupational status: employed Current occupation: Mental Health Current occupational exposures/hazards: No Cognitive needs: No Hearing needs: No Vision needs: Yes Questionnaire PHQ-9 Over the last 2 weeks, how often have you been bothered by any of the following problems? 1. Little interest or pleasure in doing things: not at all 2. Feeling down, depressed, or hopeless: not at all 3. Trouble falling or staying asleep, or sleeping too much: not at all 4. Feeling tired or having little energy: not at all 5. Poor appetite or overeating: not at all 6. Feeling bad about yourself - or that you are a failure or have let yourself or your family down: not at all 7. Trouble concentrating on things, such as reading the newspaper or watching television: not at all 8. Moving or speaking so slowly that other people could have noticed. Or the opposite - being so fidgety or restless that you have been moving around a lot more than usual: not at all 9. Thoughts that you would be better off or of hurting yourself in some way: not at all Total score: 0 Source: Developed by Drs. Jerome Mendez, Marie Sutton, Isaias Aguilar and colleagues, with an educational dayan from [employer]. Thrive Questionnaire Date Thrive assessed: 07/27/24 I am a: Patient What is your living situation today?: I have a steady place to live Within the past 12 months, did the food you bought not last and you didn't have the money to get more?: Never true Within the past 12 months, did you worry whether your food would run out before you got money to buy more?: Never true Do you have trouble paying for medicines?: No Do you have trouble getting transportation to medical appointments?: No Do you have trouble paying your heating and electricity bill?: No Do you have trouble taking care of your child, family member or friend?: No Do you have trouble with day-to-day activities such as bathing, preparing meals, shopping, managing finances, etc.?: No Are you currently unemployed and looking for a job?: No Are you interested in more education?: No Please select the resources that you would like help with: None Currently or been in a relationship where the following occur: No concerns reported THRIVE Score: 0 AUDIT C Alcohol Use Questionnaire (AUDIT-C) 1. How often do you have a drink containing alcohol?: 2-4 times a month 2. How many drinks containing alcohol do you have on a typical day when you are drinking?: 1 or 2 3. How often do you have six or more drinks on one occasion?: Never Total Score: 2 LEONOR-7 AMB Questionnaire LEONOR-7 Date LEONOR - 7 assessed: 01/14/24 Feeling nervous, anxious, or on edge: 0 = Not at all Not being able to stop or control worryin = Not at all Worrying too much about different things: 0 = Not at all Trouble relaxin = Not at all Being so restless that it is hard to sit still: 0 = Not at all Becoming easily annoyed or irritable: 0 = Not at all Feeling afraid as if something awful might happen: 0 = Not at all Total LEONOR-7 score (0-4 normal; 5-9 mild; 10-14 moderate; 15-21 severe): 0 Source: Developed by Drs. Jerome Mendez, Marie Sutton, Isaias Aguilar and colleagues, with an educational dayan from [employer]. Review of Systems Const Denies chills, Denies fatigue, Denies fever(s), Denies headache(s) and Denies weakness ENT Denies dizziness and Denies headache(s) Card Denies dyspnea Resp Denies cough, Denies dyspnea, Denies wheezing and Denies other (shortness of breath) Musc Denies numbness and Denies tingling Neuro Denies dizziness, Denies headache(s), Denies numbness, Denies tingling and Denies weakness Psych Denies anxiety and Denies depression Endo Denies fatigue Aller/Immun Denies wheezing Physical exam (Primary Care) Vital Signs: Last Vital Signs Temp 97.2 F 08/03/24 11:55 Pulse 79 08/03/24 11:55 Resp 14 08/03/24 11:55 BP 135/73 08/03/24 11:55 Pulse Ox 97 08/03/24 11:55 Oxygen Delivery Method Room Air 08/03/24 11:55 BMI result Body Mass Index 41.3 Tobacco/Smoking Status: Tobacco use Status Tobacco use date assessed 03/02/24 08/03/24 11:55 Patient Tobacco Use Status Never used Tobacco 08/03/24 11:55 e-Cigarette/Vaping Use Never Used 08/03/24 11:55 PHQ-9: PHQ-9 Score PHQ-9: Total score 0 08/03/24 11:55 Thrive Assessment: Date of Thrive Assessment Date Thrive assessed 07/27/24 08/03/24 11:55 Currently or been in a relationship where the following occur: No concerns reported Const General: well developed; No acute distress Nutritional Appearance: well nourished Orientation/consciousness: patient oriented x3 [facility] Head: Yes normocephalic and Yes atraumatic Eyes General: appearance normal, both eyes and all related structures Pupils: Equal, round and reactive pupils present EOM: EOMs intact bilaterally Resp Effort & Inspection: normal respiratory effort Auscultation: clear to auscultation bilaterally Cardio Rate: regular rate Rhythm: regular rhythm Heart sounds: S1 normal heart sound present, S2 normal heart sound present, no gallops, no murmurs and no rubs Neuro General: patient oriented x3 and gait normal Cranial nerves: Yes Equal, round and reactive pupils present Psych Affect: normal affect Coding Level of Care Code Est Pt Level 3 (59708) Diagnoses Diabetes E11.9 Assessment & Plan Assessment & Plan (1) Diabetes: Code(s): E11.9 - Type 2 diabetes mellitus without complications Category: Medical Plan: A1c?6.3%.??Good?control.??Goal?is?less?than?7.0% Continue?current?medication?regimen Continue?working?at?a?diet?lower?in?sugars?and?starches?and?continue?exercise Plan
[2024-08-03 11:55] VITALS: BP 135/73; PULSE 79; RESP 14; TEMP 36.2; O2SAT 97; BMI 41.3
== END 2024-08-03 12:18 | disposition home or self-care (01) ==
PROVIDERS: PCP Family Medicine; Visit Provider Family Medicine
DX: E11.9 Type 2 diabetes mellitus without complications (principal)

== ENCOUNTER → 2024-08-03 11:37 | Outpatient (BNVA) | payer BC, SELFPAY | PROVIDERS: PCP Family Medicine; Visit Provider Family Medicine | DX: E11.9 Type 2 diabetes mellitus without complications (principal); Z79.84 Long term (current) use of oral hypoglycemic drugs | CPT/HCPCS: 83036; 96127 ==

== ENCOUNTER 2024-09-07 07:25 | Outpatient (AMB) | payer BC, SELFPAY ==
--- NOTE | 2024-09-07 07:29 | MHC.OFFVIS ---
Vital Signs 09/07/24 07:30 Height 5 ft 5 in Weight 249 lb 4 oz BMI 41.5 BP 122/90 H Blood Pressure Location Lt brachial Position Sitting Pulse 89 Pulse Source Pulse Oximeter Pulse Oximetry (%) 98 Oxygen Delivery Method Room Air Intake Visit Reasons: INP-Motion sickness/Dizziness & guiddiness Accompanied by: Self / Same As Patient Allergies salmon Allergy (Unknown, Uncoded 08/03/24 11:54) Unknown HPI Comments Details: 44y/o female comes for evaluation of neurological causes of motion sickness. she used to snorkel and scuba on her vacations but since 2021 she has been having motion sickness( feeling off in space with nausea) when she was in water. she says the ocean was calm but in 15 minutes she started throwing up. she had similar symptoms when she was in a helicopter.she also felt her equilibrium was off when she was diving.she scuba dives while she is on vacation once a year .Prior to 2021 she was not feeling good in smaller boats. she denies ear pain, ringing noise , hearing loss. she feels like fluid in her ears. she feels good in car rides, planes etc. she has mild rare migraines. she denies headaches during these episodes. No h/o head injury . she has loud snoring but sleeps OK.she has daytime fatigue. she has senior dog 9 years old and wakes her up multiple times during the night. No diplopia No dysarthria No weakness or numbness PFSH Medical History (Updated 09/07/24 @ 08:23 by Marleny Serrano MD) Vestibular dysfunction Hypersomnia Snoring Hx of basal cell carcinoma Surgical History Hx of colonoscopy Hx of wisdom tooth extraction Hx of basal cell carcinoma excision Family History Mother Colon polyps Breast cancer Maternal Uncle Colon polyps Maternal Grandfather Colon polyps Social History Housing: House Patient Tobacco Use Status: Never used Tobacco e-Cigarette/Vaping Use: Never Used Second Hand Smoke Exposure: No service: No Current occupational status: employed Current occupation: Mental Health Current occupational exposures/hazards: No Cognitive needs: No Hearing needs: No Vision needs: Yes Physical Exam Vital Signs: Last Vital Signs Pulse 89 09/07/24 07:30 BP 122/90 H 09/07/24 07:30 Pulse Ox 98 09/07/24 07:30 Oxygen Delivery Method Room Air 09/07/24 07:30 BMI result Body Mass Index 41.5 Const General: cooperative, healthy appearing, comfortable, no acute distress and well developed Nutritional Appearance: obese Orientation/consciousness: patient oriented x3 Eyes Pupils: Equal, round and reactive pupils present Neck Neck: Yes no meningeal signs Neuro Other: Gait- mild genuvalgum Mallampatti grade 4 General: patient oriented x3, tone normal, moves all extremities, no meningeal signs and no focal motor deficits Cranial nerves: Yes Facial sensation intact/muscles of mastication intact, Yes Equal, round and reactive pupils present, Yes Bilaterally intact EOM present, Yes Nystagmus not present, Yes Normal facial strength present and Yes Midline tongue present Cognition (Neuro): normal cognition Motor exam (neuro): 5/5 motor strength present throughout and Normal motor muscle tone present throughout Deep tendon reflexes (DTR's): Right triceps reflex intensity grade: 1+, Left triceps reflex intensity grade: 1+, Rt Biceps (C5, C6): 1+, Left biceps reflex intensity grade: 1+, Right brachioradialis reflex intensity grade: 1+, Left brachioradialis reflex intensity grade: 1+, Right patellar reflex intensity grade: 1+ and Left patellar reflex intensity grade: 1+ Coordination: [id number] test normal Assessment & Plan Assessment & Plan (1) Vestibular dysfunction: Code(s): H81.90 - Unspecified disorder of vestibular function, unspecified ear Category: Medical Qualifiers: Laterality: unspecified laterality Qualified Code(s): H81.90 - Unspecified disorder of vestibular function, unspecified ear (2) Snoring: Code(s): R06.83 - Snoring Category: Medical (3) Hypersomnia: Code(s): G47.10 - Hypersomnia, unspecified Category: Medical Plan I will refer her to vestibular therapy . she can be trialed on meclizine PRN Home sleep test to r/o sleep apnea. Orders: Orders RT home sleep study Today G47.10 - Hypersomnia, unspecified, R06.83 - Snoring PT Evaluation and Treatment Today R42 - Dizziness and giddiness Coding Level of Care Code New Pt Level 4 (90461) Diagnoses Vestibular dysfunction, unspecified laterality H81.90 Laterality: unspecified laterality Snoring R06.83 Hypersomnia G47.10
[2024-09-07 07:30] VITALS: BP 122/90; PULSE 89; O2SAT 98; BMI 41.5
== END 2024-09-07 08:10 | disposition home or self-care (01) ==
PROVIDERS: PCP Family Medicine; Visit Provider Psychiatry & Neurology Neurology
DX: H81.90 Unspecified disorder of vestibular function, unspecified ear (principal); R06.83 Snoring; G47.10 Hypersomnia, unspecified
CPT/HCPCS: 99204

== ENCOUNTER 2024-10-01 08:55 | Outpatient (RCR) | payer BC, SELFPAY ==
[2024-10-01 08:34] VITALS: BP 140/78; PULSE 95; O2SAT 98
--- NOTE | 2024-10-01 09:48 | MHC.PT.EP ---
[facility] [place] Office [place] Office [place] Office [address] Anupam Silver [address] [phone] F: [phone] F: [phone] F: [phone] F: [phone] Physical Therapy Plan of Care Date of Evaluation: 10/01/24 Date of Surgery: Diagnosis: R42.0 Dizziness and giddiness PT eval Vertigo: Vestibular therapy signed by Dr. Marleny Jessica 09/07/24 Assessment: Pt is a RHD 44 y/o female, referred to PT for treatment of nausea/vertigo sx which expresses when she is scuba diving/snorkeling, referred to PT from Dr. Jessica 09/07/24. She reports onset of sx since 2021. She denies sx with daily function> mobility. Pt acknowledges concern for increased medical anxiety in recent months due to unknown cause for sx. Pt has PMH significant for DMII, basal cell CA. She exhibits negative positional BPPV testing, negative VOR head thrust testing, negative abnormalities with oculomotor screening, negative neuro screen strength/ROM/reflexed, negative Romberg on on foam/on firm, and no nystagmus observed. Sx of vertigo/nausea were unable to be be produced in the office. Pt reports pressure at times in her R ear, but denies seasonal allergies; reports hx of allergy testing as a child (+) allergy to salmon. She reports headaches sometimes but mild (-) nausea/visual changes with these headaches. She denies change in hearing, no strength/weakness, no abnormalities in vision, and/or changes in balance. Stacey may benefit from a follow up with Dr. Jessica's office, she was encouraged to schedule her sleep study as was recommended at her last appt. She was educated re: recommendation to trial meclizine prn per her office notes (pt states she was unaware of this recommendation). She may benefit from referral to ENT as she has not consulted with them before. She verbalizes wanting to find an answer before her trip to [place] in four months time. Pt does not warrant further PT at this time. She exhibits negative vestibular screening this date. THank you for this referral. Frequency and Duration: The patient will be seen 0x/week Short Term Goals: No further therapy is warranted at this time Steam Box Tender Goals: No further therapy is warranted at this time Treatment Plan: Modalities to reduce pain, spasms and effusion. Manual therapy to restore motion and function. Therapeutic exercise to improve strength and flexibility. Neuromuscular re-education for posture and balance. Therapeutic activities to return to functional activities of daily living. Electronically signed by: Amirah Johnson PT, DPT Please sign and return to therapist. Thank you for your referral.
== END 2024-11-05 08:46 | disposition home or self-care (01) ==
LOC: HO.PTWFD 08:55
PROVIDERS: PCP Family Medicine; Visit Provider Psychiatry & Neurology Neurology
DX: R42 Dizziness and giddiness (principal)
CPT/HCPCS: 97161

== ENCOUNTER → 2024-11-04 08:45 | Outpatient (REF) | payer BC, SELFPAY | LOC: HO.SL 08:45 | PROVIDERS: PCP Family Medicine; Visit Provider Psychiatry & Neurology Neurology | DX: R06.83 Snoring (principal); G47.10 Hypersomnia, unspecified | CPT/HCPCS: 95806 ==

== ENCOUNTER → 2024-11-04 09:05 | Outpatient (BNV) | payer BC, SELFPAY | PROVIDERS: PCP Family Medicine; Visit Provider Psychiatry & Neurology Neurology | DX: R06.83 Snoring (principal); G47.10 Hypersomnia, unspecified | CPT/HCPCS: 95806 ==

== ENCOUNTER 2024-12-06 08:25 | Outpatient (AMB) | payer BC, SELFPAY ==
--- NOTE | 2024-12-06 08:29 | A.OFFPC_ITS ---
Vital Signs 12/06/24 08:40 Height 5 ft 5 in Weight 256 lb 6 oz BMI 42.7 BP 120/76 Blood Pressure Location Lt brachial Position Sitting Respiration 14 Pulse 82 Pulse Source Pulse Oximeter Temp 97.9 F Temp Source Oral Pulse Oximetry (%) 98 Oxygen Delivery Method Room Air Intake Visit Reasons: f/u diabetes Intake Note: follow up DM Polysomnography Technician Required: No Allergies salmon Allergy (Unknown, Uncoded 08/03/24 11:54) Unknown Medication List - Last Reconciled 12/06/24 by Ari Blackburn MD metformin 500 mg PO DAILY 90 days norgestimate-ethinyl estradiol 0.25-35 mg-mcg (Sprintec (28)) 1 tab PO DAILY Tobacco use date assessed: 03/02/24 Dental Screening Dental Screen Date: 01/14/24 HPI f/u diabetes HPI Details 44 y/o female presents to f/u diabetes. Last A1c 08/03/24 6.3%. She is on metformin 500mg daily. A1c today 12/06/24 is 6.7%. Pt note ongoing concerns with her weight. She has questions about possible weight loss shots. HPI Comments History of Present Illness Details Documentation assistance for Ari Blackburn MD, was provided by Jacob Mondragon, Ukrainian Folk Arts Instructor on 12/06/2024 at 8:44 AM SARAI. I, Dr. Blackburn, have read, observed, and verified documentation. [facility] Medical History (Updated 09/07/24 @ 08:23 by Marleny Serrano MD) Vestibular dysfunction Hypersomnia Snoring Hx of basal cell carcinoma Surgical History Hx of colonoscopy Hx of wisdom tooth extraction Hx of basal cell carcinoma excision Family History Mother Colon polyps Breast cancer Maternal Uncle Colon polyps Maternal Grandfather Colon polyps Social History Housing: House Patient Tobacco Use Status: Never used Tobacco e-Cigarette/Vaping Use: Never Used Second Hand Smoke Exposure: No service: No Current occupational status: employed Current occupation: Mental Health Current occupational exposures/hazards: No Cognitive needs: No Hearing needs: No Vision needs: Yes Questionnaire PHQ-9 Over the last 2 weeks, how often have you been bothered by any of the following problems? 1. Little interest or pleasure in doing things: not at all 2. Feeling down, depressed, or hopeless: several days 3. Trouble falling or staying asleep, or sleeping too much: not at all 4. Feeling tired or having little energy: not at all 5. Poor appetite or overeating: not at all 6. Feeling bad about yourself - or that you are a failure or have let yourself or your family down: not at all 7. Trouble concentrating on things, such as reading the newspaper or watching television: not at all 8. Moving or speaking so slowly that other people could have noticed. Or the opposite - being so fidgety or restless that you have been moving around a lot more than usual: not at all 9. Thoughts that you would be better off or of hurting yourself in some way: not at all Total score: 1 Source: Developed by Drs. Jerome Mendez, Marie Sutton, Isaias Aguilar and colleagues, with an educational dayan from [employer]. Thrive Questionnaire Date Thrive assessed: 12/03/24 I am a: Patient What is your living situation today?: I have a steady place to live Within the past 12 months, did the food you bought not last and you didn't have the money to get more?: Never true Within the past 12 months, did you worry whether your food would run out before you got money to buy more?: Never true Do you have trouble paying for medicines?: No Do you have trouble getting transportation to medical appointments?: No Do you have trouble paying your heating and electricity bill?: No Do you have trouble taking care of your child, family member or friend?: No Do you have trouble with day-to-day activities such as bathing, preparing meals, shopping, managing finances, etc.?: No Are you currently unemployed and looking for a job?: No Are you interested in more education?: No Please select the resources that you would like help with: None Currently or been in a relationship where the following occur: No concerns repo rted THRIVE Score: 0 AUDIT C Alcohol Use Questionnaire (AUDIT-C) 1. How often do you have a drink containing alcohol?: 2-4 times a month 2. How many drinks containing alcohol do you have on a typical day when you are drinking?: 1 or 2 3. How often do you have six or more drinks on one occasion?: Never Total Score: 2 LEONOR-7 AMB Questionnaire LEONOR-7 Date LEONOR - 7 assessed: 01/14/24 Feeling nervous, anxious, or on edge: 0 = Not at all Not being able to stop or control worryin = Not at all Worrying too much about different things: 0 = Not at all Trouble relaxin = Not at all Being so restless that it is hard to sit still: 0 = Not at all Becoming easily annoyed or irritable: 0 = Not at all Feeling afraid as if something awful might happen: 1 = Several days Total LEONOR-7 score (0-4 normal; 5-9 mild; 10-14 moderate; 15-21 severe): 1 Source: Developed by Drs. Jerome Mendez, Marie Sutton, Isaias Aguilar and colleagues, with an educational dayan from [employer]. Review of Systems Const Denies chills, Denies fatigue, Denies fever(s), Denies headache(s) and Denies weakness ENT Denies dizziness and Denies headache(s) Card Denies dyspnea Resp Denies cough, Denies dyspnea, Denies wheezing and Denies other (shortness of breath) Musc Denies numbness and Denies tingling Neuro Denies dizziness, Denies headache(s), Denies numbness, Denies tingling and Denies weakness Psych Denies anxiety and Denies depression Endo Denies fatigue Aller/Immun Denies wheezing Physical exam (Primary Care) Vital Signs: Last Vital Signs Temp 97.9 F 12/06/24 08:40 Pulse 82 12/06/24 08:40 Resp 14 12/06/24 08:40 BP 120/76 12/06/24 08:40 Pulse Ox 98 12/06/24 08:40 Oxygen Delivery Method Room Air 12/06/24 08:40 BMI result Body Mass Index 42.7 Tobacco/Smoking Status: Tobacco use Status Tobacco use date assessed 03/02/24 12/06/24 08:31 Patient Tobacco Use Status Never used Tobacco 12/06/24 08:31 e-Cigarette/Vaping Use Never Used 12/06/24 08:31 PHQ-9: PHQ-9 Score PHQ-9: Total score 1 12/06/24 08:53 Thrive Assessment: Date of Thrive Assessment Date Thrive assessed 12/03/24 12/06/24 08:31 Currently or been in a relationship where the following occur: No concerns reported Const General: well developed; No acute distress Nutritional Appearance: well nourished and obese morbidly obese Orientation/consciousness: patient oriented x3 HENMT Head: Yes normocephalic and Yes atraumatic Eyes General: appearance normal, both eyes and all related structures Pupils: Equal, round and reactive pupils present EOM: EOMs intact bilaterally Resp Effort & Inspection: normal respiratory effort Auscultation: clear to auscultation bilaterally Cardio Rate: regular rate Rhythm: regular rhythm Heart sounds: S1 normal heart sound present, S2 normal heart sound present, no gallops, no murmurs and no rubs Neuro General: patient oriented x3 and gait normal Cranial nerves: Yes Equal, round and reactive pupils present Psych Affect: normal affect Results AMB Hemoglobin A1c AMB Hemoglobin A1c 6.7 % Last Edit by Virginia Lara CMA on 12/06/24 09:03 Coding Level of Care Code Est Pt Level 3 (63613) Diagnoses Diabetes E11.9 Morbid obesity with BMI of 40.0-44.9, adult E66.01; Z68.41 Assessment & Plan Assessment & Plan (1) Diabetes: Code(s): E11.9 - Type 2 diabetes mellitus without complications Category: Medical Plan: A1c?is 6.7%?today.??Goal?is?less?than?7.0% Encouraged?diet?lower?in?sugars?and?starches Encouraged?exercise?and?weight?loss Patient?wanted?to?discuss GLP-1 ?agonist?for?weight?loss?but?says?she?wants?to?think?about?it Recent?eye?exam: ?No?diabetic?retinopathy.??Up-to-date (2) Morbid obesity with BMI of 40.0-44.9, adult: Code(s): E66.01 - Morbid (severe) obesity due to excess calories; Z68.41 - Body mass index [BMI] 40.0-44.9, adult Category: Medical Plan: As?above,?discussed GLP-1 medications Encouraged?exercise?and?diet Orders: Orders Comprehensive [place]. Panel Fast Today Z00.00 - Encounter for general adult medical examination without abnormal findings Microalbumin, Random (w Creat) Today I10 - Essential (primary) hypertension Hemoglobin A1c Today R73.01 - Impaired fasting glucose Complete Blood Count Auto Diff Today Z00.00 - Encounter for general adult medical examination without abnormal findings Lipid Panel Today Z00.00 - Encounter for general adult medical examination without abnormal findings UA and rflx microscopic Today Z00.00 - Encounter for general adult medical examination without abnormal findings TSH reflex Free T4 Today Z00.00 - Encounter for general adult medical examination without abnormal findings
[2024-12-06 08:40] VITALS: BP 120/76; PULSE 82; RESP 14; TEMP 36.6; O2SAT 98; BMI 42.7
== END 2024-12-06 09:02 | disposition home or self-care (01) ==
PROVIDERS: PCP Family Medicine; Visit Provider Family Medicine
DX: E11.9 Type 2 diabetes mellitus without complications (principal); E66.01 Morbid (severe) obesity due to excess calories; Z68.41 Body mass index [BMI] 40.0-44.9, adult

== ENCOUNTER → 2024-12-06 08:25 | Outpatient (BNVA) | payer BC, SELFPAY | PROVIDERS: PCP Family Medicine; Visit Provider Family Medicine | DX: E11.9 Type 2 diabetes mellitus without complications (principal); E66.01 Morbid (severe) obesity due to excess calories; Z68.41 Body mass index [BMI] 40.0-44.9, adult; Z79.84 Long term (current) use of oral hypoglycemic drugs | CPT/HCPCS: 83036; 96127 ==

== ENCOUNTER → 2024-12-14 20:30 | Outpatient (BNV) | payer BC, SELFPAY | PROVIDERS: PCP Family Medicine; Visit Provider Psychiatry & Neurology Neurology | DX: R06.83 Snoring (principal); G47.10 Hypersomnia, unspecified | CPT/HCPCS: 95810 ==

== ENCOUNTER → 2024-12-14 20:30 | Outpatient (REF) | payer BC, SELFPAY | LOC: HO.SL 20:30 | PROVIDERS: PCP Family Medicine; Visit Provider Psychiatry & Neurology Neurology | DX: G47.10 Hypersomnia, unspecified (principal); R06.83 Snoring | CPT/HCPCS: 95810 ==

== ENCOUNTER 2024-12-21 07:42 | Outpatient (AMB) | payer BC, SELFPAY ==
[2024-12-21 07:50] VITALS: BP 114/78; PULSE 88; O2SAT 98; BMI 42.8
--- NOTE | 2024-12-21 07:50 | A.OFFVIS_ITS ---
Vital Signs 12/21/24 07:50 Height 5 ft 5 in Weight 257 lb BMI 42.8 BP 114/78 Blood Pressure Location Lt brachial Position Sitting Pulse 88 Pulse Source Pulse Oximeter Pulse Oximetry (%) 98 Oxygen Delivery Method Room Air Intake Visit Reasons: Motion sickness/Dizziness Intake Note: Patient presents follow up dizziness. Sleep Study done on 11/04. PT notes on file. Patient went to PT and they stated they didnt think it was not that diagnosis,maybe ENT. also questioning medication for motion sickness but never received Allergies salmon Allergy (Unknown, Uncoded 08/03/24 11:54) Unknown HPI Comments Details: 44y/o female comes for evaluation of neurological causes of motion sickness. She used to snorkel and scuba on vacations, since 2021 she has been having motion sickness (feeling off in space with nausea) when she is in water. Prior to 2021, she did not feel good in small vessels. She says the ocean was calm, but in 15 minutes of snorkeling she started throwing up. She had similar symptoms when she was in a helicopter, looking outside from the side windows caused her to vomit. She also felt her equilibrium was off when she was diving and coming up from 20- 30 feet. She denies ear pain, ringing noises, hearing loss. She feels like she has fluid in her ears. She feels fine in car rides, planes etc. She has mild rare migraines once a month. No h/o head injury or falls. She has loud snoring but sleeps fine, she has continuous daytime fatigue. Denies vision changes, diplopia, dysarthria, RLS, weakness or numbness. HST inconclusive -AHI 1 and Oxygen was 86% schedule in lab study, completed PSG December 14, pending results. PT evaluation was completed for vestibular therapy. Memory, mood and diet is fine, she is contemplating starting a GLP-1 agonist drug. [facility] Medical History Vestibular dysfunction Hypersomnia Snoring Hx of basal cell carcinoma Surgical History Hx of colonoscopy Hx of wisdom tooth extraction Hx of basal cell carcinoma excision Family History Mother Colon polyps Breast cancer Maternal Uncle Colon polyps Maternal Grandfather Colon polyps Social History Housing: House Patient Tobacco Use Status: Never used Tobacco e-Cigarette/Vaping Use: Never Used Second Hand Smoke Exposure: No service: No Current occupational status: employed Current occupation: Mental [employer] Current occupational exposures/hazards: No Cognitive needs: No Hearing needs: No Vision needs: Yes Review of Systems Const All systems reviewed & are unremarkable except as noted in HPI and below Physical Exam Vital Signs: Last Vital Signs Pulse 88 12/21/24 07:50 BP 114/78 12/21/24 07:50 Pulse Ox 98 12/21/24 07:50 Oxygen Delivery Method Room Air 12/21/24 07:50 BMI result Body Mass Index 42.8 Const General: cooperative, healthy appearing, comfortable, no acute distress and well developed Nutritional Appearance: obese Orientation/consciousness: patient oriented x3 Eyes Pupils: Equal, round and reactive pupils present Neck Neck: Yes no meningeal signs Neuro Other: Gait- mild genuvalgum Mallampatti grade 4 General: patient oriented x3, tone normal, moves all extremities, no meningeal signs and no focal motor deficits Cranial nerves: Yes Facial sensation intact/muscles of mastication intact, Yes Equal, round and reactive pupils present, Yes Bilaterally intact EOM present, Yes Nystagmus not present, Yes Normal facial strength present and Yes Midline tongue present Cognition (Neuro): normal cognition Motor exam (neuro): 5/5 motor strength present throughout and Normal motor muscle tone present throughout Deep tendon reflexes (DTR's): Right triceps reflex intensity grade: 1+, Left triceps reflex intensity grade: 1+, Rt Biceps (C5, C6): 1+, Left biceps reflex intensity grade: 1+, Right brachioradialis reflex intensity grade: 1+, Left brachioradialis reflex intensity grade: 1+, Right patellar reflex intensity grade: 1+ and Left patellar reflex intensity grade: 1+ Coordination: [id number] test normal Psych Affect: normal affect Thought process: Normal thought process present Thought content: Normal thought content present Results Reviewed Results Reviewed: HST was inconclusive AHI is 1 and Oxygen desaturation to 88%, will evaluate with PSG (December 13, results pending). Assessment & Plan Assessment & Plan (1) Vestibular dysfunction: Code(s): H81.90 - Unspecified disorder of vestibular function, unspecified ear Category: Medical Qualifiers: Laterality: unspecified laterality Qualified Code(s): H81.90 - Unspecified disorder of vestibular function, unspecified ear (2) Vertigo: Code(s): R42 - Dizziness and giddiness Category: Medical Plan PSG December 14 pending results, HST was inconclusive. Meclizine 25mg PO PRN MRI f/u. ENT f/u. Orders: Orders MR head/brain wo con Today H81.90 - Unspecified disorder of vestibular function, unspecified ear, T75.3XXA - Motion sickness, initial encounter Referrals Ear/Nose/Throat Referral H81.90 - Unspecified disorder of vestibular function, unspecified ear, R42 - Dizziness and giddiness Medications: New meclizine Take one 25mg talbet by mouth as needed for motion sickness. 25 mg PO DAILY PRN 30 tabs 1RF motion sickness 30 days MDD 25mg T75.3XXA - Motion sickness, initial encounter Patient Instructions: Meclizine take 25mg PO daily as needed for motion sickness, may take one additional tablet for a total dose of 50mg PO as needed for nausea, vomiting and motion sickness related symptoms. Coding Level of Care Code Est Pt Level 4 (71431) Diagnoses Vestibular dysfunction, unspecified laterality H81.90 Laterality: unspecified laterality Vertigo R42 Time Spent (min) 30
== END 2024-12-21 08:46 | disposition home or self-care (01) ==
LOC: HO.HSMS 07:43
PROVIDERS: PCP Family Medicine; Visit Provider Physician Assistant Medical
DX: H81.90 Unspecified disorder of vestibular function, unspecified ear (principal); R42 Dizziness and giddiness
CPT/HCPCS: 99214

== ENCOUNTER → 2024-12-21 07:42 | Outpatient (BNVA) | payer BC, SELFPAY | PROVIDERS: PCP Family Medicine; Visit Provider Physician Assistant Medical | DX: R06.83 Snoring (principal); G47.10 Hypersomnia, unspecified; R42 Dizziness and giddiness ==

== ENCOUNTER 2025-07-20 09:55 | Outpatient (REF) | payer BC, SELFPAY ==
[2025-07-20 14:44] LABS: Appearance Urine Clear; Glucose Urine UA Negative (Negative); PH 5.5 (5.0-9.0); Specific Gravity - Urine 1.015 (1.005-1.025); UMIC TRIGGER UA YES
== END 2025-07-20 09:56 | disposition home or self-care (01) ==
LOC: HO.LAB 09:55
PROVIDERS: PCP Family Medicine; Visit Provider Nurse Practitioner Family
DX: Z23 Encounter for immunization (principal); Z00.00 Encounter for general adult medical examination without abnormal findings; E11.9 Type 2 diabetes mellitus without complications; E66.01 Morbid (severe) obesity due to excess calories; M54.16 Radiculopathy, lumbar region; G89.29 Other chronic pain; Z12.11 Encounter for screening for malignant neoplasm of colon; R42 Dizziness and giddiness; Z68.41 Body mass index [BMI] 40.0-44.9, adult; Z80.3 Family history of malignant neoplasm of breast
CPT/HCPCS: 81001; 83036; 90471; 90715; 96127

== ENCOUNTER 2025-07-20 09:55 | Outpatient (AMB) | payer BC, SELFPAY ==
--- NOTE | 2025-07-20 09:59 | A.OFFPC_ITS ---
Vital Signs 07/20/25 10:10 Height 5 ft 5 in Weight 260 lb BMI 43.3 BP 128/80 Blood Pressure Location Rt brachial Position Sitting Pulse 89 Pulse Source Pulse Oximeter Temp 97.8 F Temp Source Temporal Artery Scan Pulse Oximetry (%) 97 Oxygen Delivery Method Room Air Intake Visit Reasons: CPE with f/u labs and health maint. Intake Note: Stacey presents in the office today for her CPE and follow up to her labs. Patient declined flu. Is last menstrual period known: Yes Last menstrual period: 06/29/25 Allergies salmon Allergy (Unknown, Uncoded 07/20/25 10:25) Unknown Medication List - Last Reconciled 07/20/25 by Angie Edwards, [employer]IC[employer]-BC meclizine 25 mg PO DAILY PRN 30 days MDD 25mg metformin 500 mg PO DAILY 90 days norgestimate-ethinyl estradiol 0.25-0.035 mg (Sprintec (28)) 1 tab PO DAILY Tobacco use date assessed: 07/20/25 Dental Screening Dental Screen Date: 07/20/25 Did you have a dental visit in the last 12 months?: Yes Did you have a dental problem in the last 6 months where you did not have access to dental care?: No Was dental information given to patient?: Patient has dentist HPI HPI Comments History of Present Illness Details 45 y/o F with family hx breast ca (mom), basal cell ca of skin, DM2, obesity, Fhx: No changes Social: no changes Surgery: no changes. Health Maintenance: Colon 2022 repeat 5 years Mammo 2022 [facility] scheduled Sep 2025 DEXA Pap 2020, active w/ [facility] [employer] Tdap 07/2025 Flu declined DM eye: wears glasses, reports done in 2024, Flavio* History of Present Illness The patient is a 45-year-old female presenting for a complete physical examination. Type 2 Diabetes Mellitus: - Managed with metformin, A1c at 7.2% - Misses doses about 40% of the time Obesity: - BMI 43.3 - Mobility limitations, particularly wit h walking - wants to take GLP 1 Mobility Limitation: - Requires compression roller after walk ing a quarter-mile - Potential referral to pain management - pain in hips and low back with radicul ar sx. 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 Health Maintenance - Tetanus shot administered - Declined influenza vaccination - Recent diabetic eye exam noted, no ret inopathy - Mammogram scheduled for September 2025 - Colonoscopy completed in 2022, next du e in 5 years - Pap smear was reviewed, deemed not due , last done in 2020 Review of Systems - Eyes: Reports recent diabetic eye exam , no retinopathy - Musculoskeletal: Reports mobility limi tations with lower back and gluteal pain after walking a quarter-mile - Ear/Nose/Throat: Reports sensitivity i n ears, resolved with meclizine - Neurologic: Reports no dizziness with position changes Physical Exam General: Well developed, well nourished, in no acute distress. Appears stated age. Patient has obesity with a BMI of 43.3. Head: Normocephalic, atraumatic. Eyes: Pupils are equal, round and reactive to light and accommodation. Conjunctivae are clear. Scleras nonicteric bilat. Vision grossly normal. No diabetes in the eyes. Ears: TMs clear AU, EACS WNL. Nose: Patent, without discharge. Neck: No carotid bruit bilat. Supple, no adenopathy or thyromegaly. Breast: Edu on SBE. Mammogram scheduled for September 2023. Lungs: Clear to auscultation bilaterally. No rales, rhonchi or wheeze noted. Good air flow in all shaw. Heart: Regular rate and rhythm. No murmurs, click, rubs or gallops are noted. Abdomen: Bowel sounds present in all quadrants. The abdomen is soft, nontender, with no masses or organomegaly noted. No hernias are noted. : Deferred. Reviewed AMA & recommendations for routine [employer]. Pulses: Peripheral pulses are equal and palpable bilaterally. Extremities: No clubbing, cyanosis nor edema is noted. Normal monofilament and vibratory sensations bilat Neurologic: Gait and station normal. Cranial Nerves 2-12 intact. Motor strength grossly symmetrical and intact. No sensory loss. Balance normal. No dizziness with position change. Skin: No rashes, ulcers, or lesions noted. Turgor is good. Skin color is good. Hair and nails are without abnormalities. Patient sees a general production manager yearly for mole review. Psych: Normal eye contact, affect and mood appropriate, and normal interactions. Patient is alert and appropriate to context. Reports anxiety about weight management shots. Results - Labs: A1c 7.2% - UA and Micro obtained today, will retu rn for other labs given her schedule. Discussion Notes I discussed management with the patient for her type 2 diabetes, emphasizing the importance of adherence to metformin prescribed regimen in controlling her A1c levels. We addressed her obesity and discussed concerns about using long-term weight loss injections. A referral to the weight management group was considered. We reviewed her mobility concerns and agreed on placing a referral to pain management to explore interventions. Her routine check-ups, including a diabetic eye exam and plans for a mammogram, were reviewed. We discussed the importance of these routine screenings for preventative health, and no diabetic retinopathy was reported at this time. I also encouraged her to maintain healthy lifestyle changes. Patient was given time to ask questions. All questions were answered to their satisfaction. Assessment and Plan 1. Type 2 Diabetes Mellitus - Improve adherence to metformin - Follow up A1c monitoring - Get DM eye exam - Normal DM foot exam 2. Obesity - weight management referral 3. Mobility Limitation/back/hip pain - Refer to pain management evaluation 4. Ear Symptoms - Cont meclzine Patient Instructions - Take metformin daily as prescribed - Schedule labs soon as possible as disc ussed - Attend scheduled mammogram in September - Consider referrals to weight managemen t and pain management - Contact office with concerns or change s in symptoms - RTO 4-6 mo with labs 1 week before for chronic dz mgmt with Dr Tc Landers Patient was informed and verbally consented to the use of an ambient scribe for clinic note documentation during this visit. An additional 20 minutes was spent addressing the problem(s) noted at todays visit. This includes time spent before the visit reviewing the chart, time spent during the visit, and time spent after the visit on documentation reviewing laboratory results, diagnostic imaging, medications, performing a medically necessary evaluation, counseling on diagnoses, care coordination, ordering appropriate tests, ordering appropriate medications, review of tests performed by other providers, reporting test results with the patient, communication with other healthcare providers. [facility] Medical History (Updated 07/20/25 @ 10:42 by NAREN Chavez-) Family history of hyperplastic colon polyps Hx of basal cell carcinoma Hypersomnia Pain in left bacon Right ankle pain Snoring Vestibular dysfunction Surgical History (Updated 07/20/25 @ 07:44 by OLMAN ChavezP-BC) Hx of basal cell carcinoma excision Hx of colonoscopy (~2022) Hx of wisdom tooth extraction Family History Mother Colon polyps Breast cancer Maternal Uncle Colon polyps Maternal Grandfather Colon polyps Social History (Updated 07/20/25 @ 10:09 by Gwen Cook [facility]) Housing: House Alcohol intake: current Patient Tobacco Use Status: Never used Tobacco e-Cigarette/Vaping Use: Never Used Second Hand Smoke Exposure: No Use of substances other than those prescribed or required for medical reasons: No service: No Current occupational status: employed Current occupation: Mental Health Current occupational exposures/hazards: No Cognitive needs: No Hearing needs: No Vision needs: Yes Female Reproductive History Menstrual Date of last menstrual period: 06/29/25 Questionnaire PHQ-9 Over the last 2 weeks, how often have you been bothered by any of the following problems? 1. Little interest or pleasure in doing things: not at all 2. Feeling down, depressed, or hopeless: not at all 3. Trouble falling or staying asleep, or sleeping too much: not at all 4. Feeling tired or having little energy: several days 5. Poor appetite or overeating: several days 6. Feeling bad about yourself - or that you are a failure or have let yourself or your family down: not at all 7. Trouble concentrating on things, such as reading the newspaper or watching television: not at all 8. Moving or speaking so slowly that other people could have noticed. Or the opposite - being so fidgety or restless that you have been moving around a lot m ore than usual: not at all 9. Thoughts that you would be better off or of hurting yourself in some way: not at all Total score: 2 Depression Screening Interpretation: Negative Depression Screening Done: Yes 61876 - PHQ-9 Billing: Yes Source: Developed by Drs. Jerome Mendez, Marie Sutton, Isaias Aguilar and colleagues, with an educational dayan from [employer]. Thrive Questionnaire Date Thrive assessed: 12/03/24 I am a: Patient What is your living situation today?: I have a steady place to live Within the past 12 months, did the food you bought not last and you didn't have the money to get more?: Never true Within the past 12 months, did you worry whether your food would run out before you got money to buy more?: Never true Do you have trouble paying for medicines?: No Do you have trouble getting transportation to medical appointments?: No Do you have trouble paying your heating and electricity bill?: No Do you have trouble taking care of your child, family member or friend?: No Do you have trouble with day-to-day activities such as bathing, preparing meals, shopping, managing finances, etc.?: No Are you currently unemployed and looking for a job?: No Are you interested in more education?: No Please select the resources that you would like help with: None Currently or been in a relationship where the following occur: No concerns reported THRIVE Score: 0 AUDIT C Alcohol Use Questionnaire (AUDIT-C) 1. How often do you have a drink containing alcohol?: Monthly or less 2. How many drinks containing alcohol do you have on a typical day when you are drinking?: 3 or 4 3. How often do you have six or more drinks on one occasion?: Never Total Score: 2 Score Reviewed/Action Taken: Yes LEONOR-7 AMB Questionnaire LEONOR-7 Date LEONOR - 7 assessed: 07/20/25 Feeling nervous, anxious, or on edge: 1 = Several days Not being able to stop or control worryin = Not at all Worrying too much about different things: 1 = Several days Trouble relaxin = Not at all Being so restless that it is hard to sit still: 0 = Not at all Becoming easily annoyed or irritable: 1 = Several days Feeling afraid as if something awful might happen: 0 = Not at all Total LEONOR-7 score (0-4 normal; 5-9 mild; 10-14 moderate; 15-21 severe): 3 Source: Developed by Drs. Jerome Mendez, Marie Sutton, Isaias Aguilar and colleagues, with an educational dayan from [employer]. LEONOR-7 Assessment Billing LEONOR-7 Assessment Tool: LEONOR-7 Assessment 24696 Physical exam (Primary Care) Vital Signs: Last Vital Signs Temp 97.8 F 07/20/25 10:10 Pulse 89 07/20/25 10:10 BP 128/80 07/20/25 10:10 Pulse Ox 97 07/20/25 10:10 Oxygen Delivery Method Room Air 07/20/25 10:10 BMI result Body Mass Index 43.3 BMI Assessment/Plan discussion: High BMI High, discussed plan: lifestyle Tobacco/Smoking Status: Tobacco use Status Tobacco use date assessed 07/20/25 07/20/25 10:13 Patient Tobacco Use Status Never used Tobacco 07/20/25 10:09 e-Cigarette/Vaping Use Never Used 07/20/25 10:09 PHQ-9: PHQ-9 Score PHQ-9: Total score 2 07/20/25 10:15 Depression Screening Interpretation: Negative Thrive Assessment: Date of Thrive Assessment Date Thrive assessed 12/03/24 07/20/25 10:03 Currently or been in a relationship where the following occur: No concerns reported Office Procedures Diabetic Foot Exam G9226 - Diabetic Foot Exam Results AMB Hemoglobin A1c AMB Hemoglobin A1c 7.2 % Last Edit by Gwen Cook CMA on 07/20/25 10:22 Immunizations Boostrix Tdap 2.5 Lf unit-8 mcg-5 Lf/0.5 mL intramuscular syringe Performing Provider: SINCERE Chavez Performing Location[place] [facility] [place] [facility] Administered by: Gwen Cook CMA on 07/20/25 10:22 Dose Route Admin Location Dispensed Lot Number Expiration Date [facility] Cad Detailer 0.5 mL IM Left Deltoid 0.5 mL [id number] 08/05/27 [id number] [employer]ise Total Dispensed Waste 0.5 mL 0 % VIS Given Date VIS Provided VIS Publication Date 07/20/25 Single Vaccine 21 Eligibility Eligibility Date Funding Source Not [facility] Eligible 07/20/25 Private Coding Level of Care Code Est Pt Level 3 (01634) Est Pt Prev Care 40-64y(92738) Diagnoses Adult general medical exam Z00.00 Type 2 diabetes mellitus without complication, without long-term current use of insulin E11.9 Diabetes mellitus type: type 2 Diabetes mellitus mcc insulin use: without mcc use Diabetes mellitus complication status: without complication Morbid obesity with BMI of 40.0-44.9, adult E66.01; Z68.41 Family history of breast cancer Z80.3 Need for Tdap vaccination Z23 Influenza vaccination declined Z28.21 Chronic radicular pain of lower back M54.16; G89.29 Encounter for colonoscopy in patient with family history of colon polyps Z12.11; Z83.71 Vertigo R42 CPT Codes Diabetic Foot Exam - CPT: G9226 - Diabetic Foot Exam ([id number]) Additional Codes LEONOR-7 Assessment Billing - LEONOR-7 Assessment Tool: LEONOR-7 Assessment 26980 ([id number]) PHQ-9 - 07498 - PHQ-9 Billing: Yes ([id number]) Assessment & Plan Assessment & Plan (1) Adult general medical exam: Onset Date: ~07/20/25 Code(s): Z00.00 - Encounter for general adult medical examination without abnormal findings Category: Medical (2) Diabetes: Code(s): E11.9 - Type 2 diabetes mellitus without complications Category: Medical Qualifiers: Diabetes mellitus type: type 2 Diabetes mellitus terminal gauger insulin use: without mcc use Diabetes mellitus complication status: without complication Qualified Code(s): E11.9 - Type 2 diabetes mellitus without complications (3) Morbid obesity with BMI of 40.0-44.9, adult: Code(s): E66.01 - Morbid (severe) obesity due to excess calories; Z68.41 - Body mass index [BMI] 40.0-44.9, adult Category: Medical (4) Family history of breast cancer: Comment: Mom Code(s): Z80.3 - Family history of malignant neoplasm of breast Category: Medical (5) Need for Tdap vaccination: Onset Date: ~07/20/25 Code(s): Z23 - Encounter for immunization Category: Medical (6) Influenza vaccination declined: Onset Date: ~07/20/25 Code(s): Z28.21 - Immunization not carried out because of patient refusal Category: Medical (7) Chronic radicular pain of lower back: Code(s): M54.16 - Radiculopathy, lumbar region; G89.29 - Other chronic pain Category: Medical (8) Encounter for colonoscopy in patient with family history of colon polyps: Comment: Patient arrived to prep for colonoscopy there was some confusion when she called to schedule A point. Unable to have patient accommodated today, there was no availability however we did attempt. Sincere apologies, she seemed receptive Family history colon polyps mother at age 50-recommend first-degree relatives begin screening at age 40 reschedule Colonoscopy MiraLax Gatorade split prep Code(s): Z12.11 - Encounter for screening for malignant neoplasm of colon; Z83.71 - Family history of colonic polyps Category: Medical (9) Vertigo: Code(s): R42 - Dizziness and giddiness Category: Medical Plan . Orders: Orders Microalbumin, Random (w Creat) 4 Months E11.9 - Type 2 diabetes mellitus without complications Vitamin B12 and Folate 4 Months E11.9 - Type 2 diabetes mellitus without complications Hemoglobin A1c 4 Months E11.9 - Type 2 diabetes mellitus without complications AMB Hemoglobin A1c Today E11.9 - Type 2 diabetes mellitus without complications TDaP Immunization Today Z23 - Encounter for immunization Microalbumin, Random (w Creat) 12/06/24 E11.9 - Type 2 diabetes mellitus without complications, I10 - Essential (primary) hypertension Comprehensive [place]. Panel Fast 4 Months E11.9 - Type 2 diabetes mellitus without complications Lipid Panel 4 Months E11.9 - Type 2 diabetes mellitus without complications Referrals Pain Management Referral G89.29 - Other chronic pain, M54.16 - Radiculopathy, lumbar region Medical Weight Management Referral E66.01 - Morbid (severe) obesity due to excess calories, Z68.41 - Body mass index [BMI] 40.0-44.9, adult Patient Instructions: Health screenings for women You should visit your health care provider from time to time, even if you are healthy. The purpose of these visits is to: Screen for medical issues Assess your risk for future medical problems Encourage a healthy lifestyle Update vaccinations and other preventive care services Help you get to know your provider in case of an illness Information Even if you feel fine, you should still see your provider for regular checkups. These visits can help you avoid problems in the future. For example, the only way to find out if you have high blood pressure is to have it checked regularly. High blood sugar and high cholesterol levels also may not have any symptoms in the early stages. A simple blood test can check for these conditions. There are specific times when you should see your provider or receive specific health screenings. The [place] Preventive Services Task Force publishes a list of recommended screenings. Below are screening guidelines for women ages 18 to 39. BLOOD PRESSURE SCREENING Your blood pressure should be checked at least once every 3 to 5 years if: Your blood pressure is in the normal range (top number less than 120 mm Hg and bottom number less than 80 mm Hg) You don't have risk factors for high blood pressure Ask your provider if you need your blood pressure checked more often if: The top number is 120 to 129 mm Hg or the bottom number is 70 to 79 mm Hg You have diabetes, heart disease, kidney problems, are overweight, or have certain other health conditions You have a first-degree relative with high blood pressure You are Black You had high blood pressure during a If the top number is 130 mm Hg or greater or the bottom number is 80 mm Hg or greater, this is considered stage 1 hypertension. Schedule an appointment with your provider to learn how you can reduce your blood pressure. Watch for blood pressure screenings in your area. Ask your provider if you can stop in to have your blood pressure checked. BREAST CANCER SCREENING Experts do not agree about the benefits of breast self-exams in finding breast cancer or saving lives. Talk to your provider about what is best for you. A screening mammogram is not recommended for most women under age 40. Your provider may discuss and recommend mammograms, MRI scans, or ultrasounds if you have an increased risk for breast cancer, such as: A mother or sister who had breast cancer at a young age (most often starting screening earlier than the age the close relative was diagnosed) You carry a high-risk genetic marker CERVICAL CANCER SCREENING Cervical cancer screening should start at age 21 years unless your provider advises otherwise. After the first test: Women ages 21 through 29 should have a Pap test every 3 years. Exoprts do not agree on whether HPV testing is recommended for this age group. Women ages 30 through 65 should be screened with either a Pap test every 3 years or the HPV test every 5 years or both tests every 5 years (called cotesting ). Women who have been treated for precancer (cervical dysplasia) should continue to have Pap tests for 20 years after treatment or until age 65, whichever is longer. If you have had your uterus and cervix removed (total hysterectomy), and you have not been diagnosed with cervical cancer or precancer (high grade cervical neoplasia), you do not need cervical cancer screening. CHOLESTEROL SCREENING Cholesterol screening should begin at: Age 45 for women with no known risk factors for coronary heart disease Age 20 for women with known risk factors for coronary heart disease Repeat cholesterol screening should take place: Every 5 years for women with normal cholesterol levels More often if changes occur in lifestyle (including weight gain and diet) More often if you have diabetes, heart disease, kidney problems, or certain other conditions DIABETES SCREENING You should be screened for diabetes starting at age 35 and then repeated every 3 years if you have no risk factors for diabetes. Screening may need to start earlier and be repeated more often if you have other risk factors for diabetes, such as: You have a first degree relative with diabetes. You are overweight or have obesity. You have high blood pressure, prediabetes, or a history of heart disease. Screening for diabetes should be done if you are planning to become and you are overweight and have other risk factors such as high blood pressure. DENTAL EXAM Go to the dentist once or twice every year for an exam and cleaning. Your dentist will evaluate if you need more frequent visits. EYE EXAM Have an eye exam every 5 to 10 years before age 40. If you have vision problems, have an eye exam every 2 years or more often if recommended by your provider. You should have an eye exam that includes an examination of your retina (back of your eye) at least every year if you have diabetes. IMMUNIZATIONS Commonly needed vaccines include: Flu shot: get one every year. COVID-19 vaccine: ask your provider what is best for you. Tetanus-diphtheria and acellular pertussis (Tdap) vaccine: have one at or after age 19 as one of your tetanus-diphtheria vaccines if you did not receive it as an adolescent. Tetanus-diphtheria: have a booster (or Tdap) every 10 years. Varicella vaccine: receive 2 doses if you never had chickenpox or the varicella vaccine. Hepatitis B vaccine: receive 2, 3, or 4 doses, depending on your exact circumstances. Measles, mumps, and rubella (MMR) vaccine: receive 1 to 2 doses if you are not already immune to MMR. Your provider can tell you if you are immune. Ask your provider about the human papillomavirus (HPV) vaccine if: You have not received the HPV vaccine in the past You have not completed the full vaccine series (you should catch up on this shot) Ask your provider if you should receive other immunizations if you have certain health problems that increase your risk for some diseases such as pneumonia. INFECTIOUS DISEASE SCREENING Women who are sexually active should be screened for chlamydia and gonorrhea up until age 25. Women 25 years and older should be screened for chlamydia and gonorrhea if at high risk. Screening for hepatitis C: All adults ages 18 to 79 should get a one-time test for hepatitis C. people should be screened at every . Screening for human immunodeficiency virus (HIV): All people ages 15 to 65 should get a one-time test for HIV. Depending on your lifestyle and medical history, you may also need to be screened for infections such as syphilis and HIV, as well as other infections. PHYSICAL EXAM All adults should visit their provider from time to time, even if they are healthy. The purpose of these visits is to: Screen for disease Assess your risk of future medical problems Encourage a healthy lifestyle Update your vaccinations and other preventive care services Maintain a relationship with a provider in case of an illness Your height, weight, and BMI should be checked at every exam. During your exam, your provider may ask you about: Depression and anxiety Diet and exercise Alcohol and tobacco use Safety issues, such as using seat belts, smoke detectors, and intimate partner violence Your medicines and risk for interactions SKIN SELF-EXAM Your provider may check your skin for signs of skin cancer, especially if you're at high risk, such as if you: Have had skin cancer before Have close relatives with skin cancer Have a weakened immune system OTHER SCREENING Talk with your provider about colon cancer screening if you have a strong family history of colon cancer or polyps, or if you have had inflammatory bowel disease or polyps yourself. Routine bone density screening of women under 40 is not recommended.
[2025-07-20 10:10] VITALS: BP 128/80; PULSE 89; TEMP 36.6; O2SAT 97; BMI 43.3
== END 2025-07-20 10:47 | disposition home or self-care (01) ==
LOC: HO.HMCFM 09:56
PROVIDERS: PCP Family Medicine; Visit Provider Nurse Practitioner Family
DX: Z00.00 Encounter for general adult medical examination without abnormal findings (principal); E11.9 Type 2 diabetes mellitus without complications; E66.01 Morbid (severe) obesity due to excess calories; Z68.41 Body mass index [BMI] 40.0-44.9, adult; R42 Dizziness and giddiness; M54.16 Radiculopathy, lumbar region; G89.29 Other chronic pain; Z80.3 Family history of malignant neoplasm of breast; Z23 Encounter for immunization; Z28.21 Immunization not carried out because of patient refusal; Z12.11 Encounter for screening for malignant neoplasm of colon; Z83.71 Family history of colonic polyps

== ENCOUNTER 2025-08-17 08:41 | Outpatient (REF) | payer BC, SELFPAY ==
[2025-08-17 11:14] LABS: MANUAL DIFF FLAG NO
[2025-08-17 11:19] LABS: Hematocrit 39.9 % (37.0-47.0); Hemoglobin 13.0 g/dl (12.0-16.0); Imm Gran Abs Auto 0.03 X10*3/uL (0.00-0.03); Imm Gran Pct Auto 0.3 % (0.0-0.4); Lymphocytes Absolute Auto 3.7 X10*3/uL (1.2-4.9); Mean Corpuscular HGB Conc 32.6 g/dl (31.0-35.0); Mean Corpuscular Hemoglobin 30.6 pg (27.0-33.0); Mean Corpuscular Volume 93.9 fL (80.0-98.0); NRBC Abs Auto 0.000 X10*3/uL (0.0-0.012); NRBC Pct Auto 0.0 /100WBC (0.0-0.2); Platelet Count 268 X10*3/uL (160-400); Red Blood Count 4.25 X10*6/uL (4.20-5.50); White Blood Count 10.0 X10*3/uL (4.8-10.8)
[2025-08-17 11:36] LABS: Appearance Urine Cloudy; Glucose Urine UA Negative (Negative); PH 5.5 (5.0-9.0); Specific Gravity - Urine 1.020 (1.005-1.025); UMIC TRIGGER UA YES
[2025-08-17 11:56] LABS: Alanine Aminotransferase 14 U/L (0-31); Albumin Level 3.9 g/dL (3.5-5.0); Alkaline Phosphatase 51 U/L (39-117); Anion Gap 12 (12-20); Aspartate Amino Transferase 17 U/L (5-31); Blood Urea Nitrogen 16 mg/dL (9-16); Calcium 9.0 mg/dL (8.4-10.2); Carbon Dioxide 24 mmol/L (22-29); Chloride 106 mmol/L (96-108); Cholesterol 148 mg/dL (<200); Estimated Glomerular Filt Rate 58; HDL Cholesterol 48 mg/dL (>40); Potassium 4.2 mmol/L (3.3-5.1); Sodium 138 mmol/L (135-145); Total Protein 7.2 g/dL (6.5-8.0); Triglycerides 167 mg/dL (<150)
[2025-08-17 12:14] LABS: Microalbum/Creatinine Ratio Ur 3.3 ug/mg cr (<30)
== END 2025-08-17 08:42 | disposition home or self-care (01) ==
LOC: HO.WFDLDS 08:41
PROVIDERS: Nurse Practitioner Family; Visit Provider Family Medicine
DX: Z00.00 Encounter for general adult medical examination without abnormal findings (principal); I10 Essential (primary) hypertension; E11.9 Type 2 diabetes mellitus without complications
CPT/HCPCS: 36415; 80053; 80061; 81001; 82043; 82570; 84443; 85025

== ENCOUNTER 2025-09-19 08:23 | Outpatient (AMB) | payer BC, SELFPAY ==
--- NOTE | 2025-09-19 08:22 | MHC.OFFVIS ---
Vital Signs 09/19/25 08:29 09/19/25 08:31 Height 5 ft 5 in Weight 256 lb 8 oz BMI 42.7 BP 166/94 H 152/88 H Blood Pressure Location Rt brachial Lt brachial Position Sitting Sitting Pulse 96 Pulse Source Pulse Oximeter Pulse Oximetry (%) 100 Oxygen Delivery Method Room Air Comment bp recheck Intake Visit Reasons: Radiculopathy, lumbar region Intake Note: Pain today 0/10 Stud Master/Mistress Required: No Accompanied by: Self / Same As Patient Allergies salmon Allergy (Unknown, Uncoded 07/20/25 10:25) Unknown HPI Comments Details: The patient is a 45 year old female presenting for evaluation of worsening mobility over the past three years. She reports pain primarily in the left gluteal region, which can sometimes occur on the right side as well, that is specifically associated with walking. This pain is exertion-related, beginning after walking about a quarter of a mile and requiring her to stop and stretch before continuing. Denies any recent trauma, injury or falls. Associated symptoms include tingling in her feet while walking. The pain is improved when she has something to hold onto, such as a shopping cart. She denies pain when bending forward or backward, or when rising from a seated position. Past medical history is significant for basal cell carcinoma of the skin, diabetes with a recent A1c of 7.1, and morbid obesity. She has no history of surgical procedures on her back, hips, or knees. 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 Previous management includes physical therapy over a year ago which she felt helped a little, chiropractic adjustments every 3-4 weeks, and home use of a foam roller and massage gun. She has never had any injections for her pain and does not take medications like ibuprofen. X-rays from last year showed mild multilevel lumbar spondylosis, disc degeneration at L4-L5 and L5-S1, degenerative changes in both SI joints that are worse on the left than the right, and mild degenerative changes of both hips. - Onset: The patient reports her mobility has progressively worsened over the last three years. - Location: Pain is primarily felt in the left gluteal region, but can occur bilaterally. - Radiation: She experiences tingling in her feet when walking. - Aggravating Factors: Pain is triggered by walking, typically starting after about a quarter of a mile. - Alleviating Factors: Pain is relieved by holding onto an object like a shopping cart while walking or by stopping to stretch. - Interference: The pain does not interfere with sleep, and she can sleep on either side. - Affect: The patient is willing and excited to try injections, though also a little nervous. - Analgesia: The patient does not take any pain medications, such as ibuprofen. - Activities of Daily Living: The patient's mobility has worsened over three years due to pain with walking. - Aberrant Drug-Related Behaviors: No aberrant behaviors were noted. Oswestry Low Back Pain Disability Score=5 [facility] Medical History Family history of hyperplastic colon polyps Right ankle pain Pain in left bacon Vestibular dysfunction Hypersomnia Snoring Hx of basal cell carcinoma Surgical History Hx of colonoscopy (~2022) Hx of wisdom tooth extraction Hx of basal cell carcinoma excision Family History Mother Colon polyps Breast cancer Maternal Uncle Colon polyps Maternal Grandfather Colon polyps Social History Housing: House Alcohol intake: current Patient Tobacco Use Status: Never used Tobacco e-Cigarette/Vaping Use: Never Used Second Hand Smoke Exposure: No service: No Current occupational status: employed Current occupation: Mental Health Current occupational exposures/hazards: No Cognitive needs: No Hearing needs: No Vision needs: Yes Review of Systems Const All systems reviewed & are unremarkable except as noted in HPI and below Physical Exam Vital Signs: Last Vital Signs Pulse 96 09/19/25 08:29 BP 152/88 H 09/19/25 08:31 Pulse Ox 100 09/19/25 08:29 Oxygen Delivery Method Room Air 09/19/25 08:29 BMI result Body Mass Index 42.7 General: Appears afebrile. Morbidly obese. Alert and oriented. Mood and affect appropriate. Follows and participates in conversation appropriately. Respiratory effort is unlabored. No cough. Able to transition from sit to stand unassisted. Ambulates with bilaterally normal heel strike and toe off. General: Yes no CVA tenderness Back/Spine/Pelvis Other: Patient is able to walk and stand on heels and tip toes with no difficulties demonstrating good motor tone. No limping. Can flex forward to 75-80 degrees and extend to 10-15 degrees before experiencing mild lumbar pain. Demonstrates 5/5 strength of quadriceps bilaterally as well as flexion/dorsiflexion of bilateral feet against resistance. 2+ pedal pulses bilaterally. Straight leg rise with dorsiflexion negative bilaterally. +1 patellar and achilles reflexes bilaterally. Facet loading test positive bilaterally. Brian sign, [place]?s, [place], Pelvic compression and Stinchfield tests are positive bilaterally, left>right. Mild groin pain with I/E hip rotations bilaterally. Valsalva maneuver negative. Back: no CVA tenderness Cervical Spine: normal cervical lordosis, cervical ROM normal, No Cervical spine scars present and No Cervical spine tenderness Thoracic/Lumbar Spine: thoracic and lumbar spine normal to inspection, No Thoracic/lumbar spine scar(s), Lasegue's sign negative, straight leg raise negative bilaterally, pain with thoraco-lumbar ROM, No thoracic spinal tenderness and No lumbar spinal tenderness Pelvis: buttock tenderness bilaterally Sacroiliac joints: bilaterally tender to palpation Extrem General: Yes capillary refill normal, Yes no clubbing, cyanosis or edema and Yes no calf tenderness Results Reviewed Results Reviewed: XR LUMBAR SPINE, BILATERAL HIPS, PELVIS 01/05/24 CLINICAL INFORMATION: Low back pain unspecified, abnormalities of gait and mobility. COMPARISON: None available. TECHNIQUE: AP view of the pelvis. AP and frog-lateral views of each hip. 3 views of the lumbar spine. FINDINGS: Lumbar Spine: Facet arthritis in the lower lumbar spine. Minimal leftward curvature of the lumbar spine. Mild multilevel lumbar spondylosis with mild loss of disc space height at L4-L5 and L5-S1. Pelvis: Asymmetric degenerative changes in the bilateral sacroiliac joints, left greater than right. Right Hip: Mild joint space narrowing with degenerative changes in the hip. Alignment preserved. Limited visualization due to body habitus. Small sclerotic focus overlying the right intertrochanteric region, possibly a bone island. Left Hip: Mild joint space narrowing with degenerative changes in the hip. Alignment is preserved. Limited visualization due to body habitus. IMPRESSION: 1. Mild multilevel lumbar spondylosis with mild loss of disc space height at L4-L5 and L5-S1. 2. Asymmetric degenerative changes in the bilateral sacroiliac joints, left greater than right. 3. Mild degenerative changes bilateral hips. 4. CT scan or MRI should be obtained if there is clinical concern for fracture or other underlying pathology. Assessment & Plan Assessment & Plan (1) Low back pain: Code(s): M54.50 - Low back pain, unspecified Category: Medical (2) Morbid obesity with BMI of 40.0-44.9, adult: Code(s): E66.01 - Morbid (severe) obesity due to excess calories; Z68.41 - Body mass index [BMI] 40.0-44.9, adult Category: Medical (3) Sacroiliac joint pain: Code(s): M53.3 - Sacrococcygeal disorders, not elsewhere classified Category: Medical (4) Sacroiliitis: Code(s): M46.1 - Sacroiliitis, not elsewhere classified Category: Medical (5) Osteoarthritis of hips, bilateral: Code(s): M16.0 - Bilateral primary osteoarthritis of hip Category: Medical (6) Lumbosacral spondylosis: Code(s): M47.817 - Spondylosis without myelopathy or radiculopathy, lumbosacral region Category: Medical Plan The patient's symptoms, physical exam findings, and imaging results are most consistent with sacroiliac joint pain. The plan is to proceed with bilateral therapeutic SI joint injections with local and fluoroscopy. Expectations, risks and benefits were reviewed. Patient is aware she will be contacted to schedule this procedure. We also discussed diagnostic injections for potential RFA, fusion and peripheral nerve stimulation treatments. If the radiating leg symptoms do not improve following the injections, an MRI of the lumbar spine will be considered. Future management for hip arthritis could include therapeutic injections. Lifestyle modifications were recommended, including increasing fluid intake, using a sit-stand desk for work, adequate hydration and gradually increasing daily walking to at least 5,000 steps with goal of 10,000 steps daily. The patient was counseled on the importance of maintaining good glycemic control, as an A1c above 7.5 could limit future treatment options. She also has pending evaluation at [facility]. All questions and concerns have been answered and patient agreed with the treatment plan. Follow up after injections and sooner as needed. Patient was informed and verbally consented to the use of an ambient scribe for clinic note documentation during this visit. Coding Level of Care Code New Pt Level 4 (98268) Diagnoses Low back pain M54.50 Morbid obesity with BMI of 40.0-44.9, adult E66.01; Z68.41 Sacroiliac joint pain M53.3 Sacroiliitis M46.1 Osteoarthritis of hips, bilateral M16.0 Lumbosacral spondylosis M47.817
[2025-09-19 08:29] VITALS: BP 166/94; PULSE 96; O2SAT 100; BMI 42.7
[2025-09-19 08:31] VITALS: BP 152/88
== END 2025-09-19 08:55 | disposition home or self-care (01) ==
PROVIDERS: PCP Family Medicine; Visit Provider Nurse Practitioner Family
DX: M54.50 Low back pain, unspecified (principal); E66.01 Morbid (severe) obesity due to excess calories; Z68.41 Body mass index [BMI] 40.0-44.9, adult; M53.3 Sacrococcygeal disorders, not elsewhere classified; M46.1 Sacroiliitis, not elsewhere classified; M16.0 Bilateral primary osteoarthritis of hip; M47.817 Spondylosis without myelopathy or radiculopathy, lumbosacral region
CPT/HCPCS: 99204